=== PATIENT | female | born 1930 | race Caucasian/White ===

== ENCOUNTER 2017-07-05 12:06 | Observation (INO) ==
[2017-07-05] MEDS ORDERED: 0.9 % Sodium Chloride 1,000 ML IVC ONE ×2 (12:44→13:22)
[2017-07-05 13:02] LABS: Basophils % 0.2 %; Eosinophils % 0.1 %; Hematocrit 44.6 % (35.3-44.9); Hemoglobin 14.7 g/dL (11.5-15.4); Immature Granulocytes % 0.6 % (0-4); Lymphocytes # 0.1 K/mcL (0.6-4.6); Lymphocytes % 0.9 %; Mean Corpuscular Hemoglobin 31.8 pg (28.0-33.3); Mean Corpuscular Volume 96.5 fL (83.0-100.0); Mean Platelet Volume 10.1 fL (9.4-12.4); Monocytes # 0.7 K/mcL (0.0-1.3); Monocytes % 5.1 %; Nucleated Red Blood Cells 0.1 /100 WBC (0); Platelet Count 245 K/mcL (140-400); Red Blood Count 4.62 M/mcL (3.82-4.97); Red Cell Distribution Width 13.5 % (11.5-14.5); Segmented Neutrophils % 93.1 %
[2017-07-05 13:11] LABS: Bilirubin,Urine Negative (Negative); Blood,Urine Negative (Negative); Clarity,Urine Clear (Clear); Color,Urine Yellow (Yellow); Glucose,Urine (UA) 100 mg/dL (Normal); Ketones,Urine Negative (Negative); Leukocyte Esterase,Urine Negative (Negative); Nitrite,Urine Negative (Negative); PH,Urine 5.5 pH Units (5.0-8.0); Protein,Urine Trace mg/dL (Neg-Trace); Specific Gravity,Urine 1.022 (1.010-1.025); Urobilinogen,Urine Normal (Normal)
[2017-07-05 13:13] LABS: Bacteria,Urine None Seen per hpf (None-Few); Hyaline Casts,Urine None Seen per lpf (None-Few); RBC,Urine 0-3 per hpf (0-3); Squamous Epithelial Cell,Urine Many per lpf (None-Few); WBC,Urine 0-3 per hpf (0-3)
[2017-07-05] MEDS ORDERED: Ondansetron 4 MG/2 ML VIAL IVP ONE ×2 (13:22→20:44)
[2017-07-05] MEDS ORDERED: Hyoscyamine 0.5 MG/ML MLS IVP ONE (13:22)
[2017-07-05 13:23] LABS: Platelet Estimate Normal (Normal); Smudge Cells Present (Not Present)
--- NOTE | 2017-07-05 13:25 | Emergency Department Note ---
Disposition Clinical Impression: Enteritis, Gall bladder polyp Sepsis Qualifiers: Sepsis type: sepsis due to unspecified organism Qualified Code(s): A41.9 - Sepsis, unspecified organism Disposition: Admitted As Inpatient Condition: Fair Referrals: Jorge Moya MD [Primary Care Provider] - Forms: ED Satisfaction Letter Time of Disposition: 18:37 General Adult HPI - General Chief complaint: ED Nausea/Vomiting/Diarrhea Stated complaint: NVD/weakness Time Seen by Provider: 07/05/17 12:44 Source: patient, family Mode of arrival: ambulatory Limitations: no limitations Nursing Notes Reviewed: Yes Vital Signs Reviewed: Yes - History of Present Illness HPI Narrative: 86-year-old female history of lung cancer in remission, COPD, hypertension presents for evaluation of abdominal pain and nausea and vomiting. Patient history provided by the family bedside. States that patient started experiencing nonbloody green emesis this morning. Patient's also had nonbloody diarrhea. Patient's also been having diffuse abdominal cramping since then. Patient reports a fever at triage. Patient reports chills. Patient reports a number cough. No URI symptoms. No chest pain. No stress breath. Patient is not currently immunocompromised. The patient's last chemotherapy treatment was a couple years ago. Patient denies any urinary symptoms. Patient has not eaten anything today. Patient still has her gallbladder as well as her appendix. Patient denies any recent antibiotic use. Denies any recent contacts. Pain Scale: 5 - Related Data Home Medications Medication Instructions Recorded Confirmed Atorvastatin [Lipitor] 20 mg PO HS 12/19/14 07/05/17 Losartan/HCTZ [Hyzaar 50/12.5] 1 each PO DAILY 12/19/14 07/05/17 PredniSONE 2.5 mg PO TID 03/26/15 07/05/17 Calcium Carbonate/Vitamin D3 1 each PO DAILY 06/30/15 07/05/17 [Calcium 600 + Vit D Tablet] Cholecalciferol (D-3) [Vitamin D] 5,000 unit PO DAILY 06/22/17 07/05/17 dilTIAZem HCl [Diltiazem ER] 240 mg PO DAILY 06/22/17 07/05/17 Previous Rx's Medication Instructions Recorded Omeprazole [PriLOSEC] 20 mg PO DAILY #30 cap 07/01/16 Allergies Allergy/AdvReac Type Severity Reaction Status Date / Time codeine Allergy Hives Verified 07/05/17 12:29 All systems ED: reviewed and negative except as stated. Constitutional: Reports: fever Cardiovascular: Denies: chest pain Respiratory: Reports: cough. Denies: dyspnea Gastrointestinal: Reports: abdominal pain, nausea, vomiting, diarrhea Genitourinary: Denies: dysuria Past Medical History - Past Medical History Source: patient, obtained from family Medical history: Reports: cancer, COPD, hyperlipidemia, hypertension Surgical history: Reports: non-contributory Psychiatric history: Reports: no psych history - Social History Smoking Status: Never smoker Smokeless Tobacco Status: No Alcohol use: Reports: none Drug use: Reports: none Physical Exam - General Limitations: no limitations General appearance: alert, in no apparent distress - Head Head exam: atraumatic, normocephalic, normal inspection - Eye Eye exam: Present: normal appearance, PERRL, EOMI - ENT ENT exam: normal exam, normal oropharynx, mucous membranes moist - Neck Neck exam: Present: normal inspection, full ROM, trachea midline - Chest Chest inspection: Present: normal inspection, symmetric chest wall rise - Respiratory Respiratory exam: Present: normal lung sounds bilaterally. Absent: respiratory distress - Cardiovascular Cardiovascular exam: Present: regular rate, tachycardia. Absent: systolic murmur - Abdominal Exam Abdominal exam: Present: soft, tenderness. Absent: guarding, rebound - Extremities Exam Extremities exam: Present: normal inspection - Back Exam Back exam: Present: normal inspection - Neurological Exam Neurological exam: Present: alert, oriented X3 - Skin Skin exam: Present: warm, dry, intact, normal color Course Course Narrative: Patient seen and examined. Patient does meet SIRS criteria with tachycardia and temperature. Patient's been having abdominal pain nausea vomiting. Patient will get fluid resuscitated, anti-inflammatories, nausea medicine. Patient an extensive evaluation with chest x-ray labs imaging. - Reevaluation(s) Reevaluation #1: Patient seen and examined. Bedside ultrasound shows a distended gallbladder. Anterior gallbladder esteban proximally 3 mm. Given the fact the patient did meet SIRS criteria with likely abdominal pathology. Antibiotics were ordered and administered following blood cultures. Time: 13:56 Reevaluation #2: Patient seen and examined. Patient states she is feeling better. Awaiting CT abdomen and pelvis Time: 14:51 Reevaluation #3: Patient seen and examined. Patient updated on plan of care. Will get U/S Time: 15:20 Additional Reevaluation(s): 1633: Patient's resting comfortably. No acute distress. Vital Signs Temperature 100.3 F H 07/05/17 12:30 Pulse Rate 117 07/05/17 12:30 Respiratory Rate 26 07/05/17 12:30 Blood Pressure 100/60 07/05/17 12:30 O2 Sat by Pulse Oximetry 94 07/05/17 12:30 Temperature 100.3 F H 07/05/17 15:41 Pulse Rate 118 07/05/17 15:41 Respiratory Rate 13 07/05/17 15:41 Blood Pressure 114/55 07/05/17 15:41 O2 Sat by Pulse Oximetry 93 07/05/17 15:41 Oxygen Delivery Oxygen Delivery Nasal Cannula Medical Decision Making - [facility] Narrative Medical decision making narrative: Patient presents with concerns of sepsis. Patient had nausea vomiting diarrhea and weakness. Patient had CT imaging abdomen and pelvis which showed finding consistent with enteritis. Patient was not treated at this point with C. difficile given the duration of symptoms with no prior history of antibiotics. Patient was given Zosyn empirically early on for concerns of intra-abdominal sepsis. She had a ultrasound of the gallbladder which shows a polyp with no signs of acute cholecystitis. Patient had a flu which was negative. Chest x- ray shows no pneumonia. Patient did have a lactic acidosis and was given 2 L of crystalloid as well as started on 125 mL/hr of fluid with repeat lactate that is to be followed by the hospitalist team. She does appear well-perfused. Patient's abdomen has been soft and nonsurgical. Patient will be admitted to the hospital service for further evaluation and monitoring. - Lab Data Lab results reviewed: Yes I reviewed the patient's lab results. Result diagrams: 07/05/17 12:30 07/05/17 12:30 Lab Results 07/05/17 07/05/17 07/05/17 Range/Units 12:30 12:30 13:02 WBC 14.0 H (4.3-11.1) K/mcL RBC 4.62 (3.82-4.97) M/mcL Hgb 14.7 (11.5-15.4) g/dL Hct 44.6 (35.3-44.9) % MCV 96.5 (83.0-100.0) fL MCH 31.8 (28.0-33.3) pg MCHC 33.0 (31.6-35.5) g/dL RDW 13.5 (11.5-14.5) % Plt Count 245 (140-400) K/mcL MPV 10.1 (9.4-12.4) fL Immature Gran % 0.6 (0-4) % Seg Neutrophils % 93.1 % Lymphocytes % 0.9 % Monocytes % 5.1 % Eosinophils % 0.1 % Basophils % 0.2 % Neutrophils # 13.0 H (1.6-8.9) K/mcL Lymphocytes # 0.1 L (0.6-4.6) K/mcL Monocytes # 0.7 (0.0-1.3) K/mcL Eosinophils # 0.0 (0.0-0.6) K/mcL Basophils # 0.0 (0.0-0.2) K/mcL Nucleated RBCs/100 WBC 0.1 H (0) /100 WBC Smudge Cells Present A (Not Present) Platelet Estimate Normal (Normal) PT (9.4-12.1) Seconds INR Sodium 135 L (136-145) mEq/L Potassium 3.7 (3.5-5.1) mEq/L Chloride 100 (98-107) mEq/L Carbon Dioxide 26 (23-29) mEq/L BUN 31 H (8-23) mg/dL Creatinine 1.20 (0.60-1.20) mg/dL Est GFR ( Amer) 52 L (> 60) Est GFR (Non-Af Amer) 43 L (> 60) BUN/Creatinine Ratio 26 (6-26) Glucose 203 H (70-105) mg/dL Calculated Osmolality 292 (280-300) Lactic Acid (0.5-2.2) mmol/L Calcium 10.1 (8.6-10.3) mg/dL Total Bilirubin 0.8 (0.3-1.0) mg/dL AST 25 (13-39) Units/L ALT 23 (7-52) Units/L Alkaline Phosphatase 83 (34-104) Units/L Troponin I (< 0.04) ng/mL Serum Total Protein 7.5 (6.4-8.9) g/dL Albumin 4.3 (3.5-5.7) g/dL Globulin 3.2 (2.4-3.5) g/dL Albumin/Globulin Ratio 1.3 (1.1-2.2) Lipase 14 (11-82) Units/L Urine Color Yellow (Yellow) Urine Clarity Clear (Clear) Urine pH 5.5 (5.0-8.0) pH Units Ur Specific [place]iva 1.022 (1.010-1.025) Urine Protein Trace (Neg-Trace) mg/dL Urine Glucose (UA) 100 H (Normal) mg/dL Urine Ketones Negative (Negative) mg/dL Urine Blood Negative (Negative) Urine Nitrite Negative (Negative) Urine Bilirubin Negative (Negative) Urine Urobilinogen Normal (Normal) mg/dL Ur Leukocyte Esterase Negative (Negative) Urine Microscopic RBC 0-3 (0-3) per hpf Urine Microscopic WBC 0-3 (0-3) per hpf Ur Squamous Epith Cells Many H (None-Few) per lpf Urine Bacteria None Seen (None-Few) per hpf Hyaline Casts None Seen (None-Few) per lpf Ur Culture Indicated? NO (NO) Blood Type Antibody Screen 07/05/17 07/05/17 07/05/17 Range/Units 13:20 13:20 13:48 WBC (4.3-11.1) K/mcL RBC (3.82-4.97) M/mcL Hgb (11.5-15.4) g/dL Hct (35.3-44.9) % MCV (83.0-100.0) fL MCH (28.0-33.3) pg MCHC (31.6-35.5) g/dL RDW (11.5-14.5) % Plt Count (140-400) K/mcL MPV (9.4-12.4) fL Immature Gran % (0-4) % Seg Neutrophils % % Lymphocytes % % Monocytes % % Eosinophils % % Basophils % % Neutrophils # (1.6-8.9) K/mcL Lymphocytes # (0.6-4.6) K/mcL Monocytes # (0.0-1.3) K/mcL Eosinophils # (0.0-0.6) K/mcL Basophils # (0.0-0.2) K/mcL Nucleated RBCs/100 WBC (0) /100 WBC Smudge Cells (Not Present) Platelet Estimate (Normal) PT 11.3 (9.4-12.1) Seconds INR 1.1 Sodium (136-145) mEq/L Potassium (3.5-5.1) mEq/L Chloride (98-107) mEq/L Carbon Dioxide (23-29) mEq/L BUN (8-23) mg/dL Creatinine (0.60-1.20) mg/dL Est GFR ( Amer) (> 60) Est GFR (Non-Af Amer) (> 60) BUN/Creatinine Ratio (6-26) Glucose (70-105) mg/dL Calculated Osmolality (280-300) Lactic Acid (0.5-2.2) mmol/L Calcium (8.6-10.3) mg/dL Total Bilirubin (0.3-1.0) mg/dL AST (13-39) Units/L ALT (7-52) Units/L Alkaline Phosphatase (34-104) Units/L Troponin I < 0.03 (< 0.04) ng/mL Serum Total Protein (6.4-8.9) g/dL Albumin (3.5-5.7) g/dL Globulin (2.4-3.5) g/dL Albumin/Globulin Ratio (1.1-2.2) Lipase (11-82) Units/L Urine Color (Yellow) Urine Clarity (Clear) Urine pH (5.0-8.0) pH Units Ur Specific Riva (1.010-1.025) Urine Protein (Neg-Trace) mg/dL Urine Glucose (UA) (Normal) mg/dL Urine Ketones (Negative) mg/dL Urine Blood (Negative) Urine Nitrite (Negative) Urine Bilirubin (Negative) Urine Urobilinogen (Normal) mg/dL Ur Leukocyte Esterase (Negative) Urine Microscopic RBC (0-3) per hpf Urine Microscopic WBC (0-3) per hpf Ur Squamous Epith Cells (None-Few) per lpf Urine Bacteria (None-Few) per hpf Hyaline Casts (None-Few) per lpf Ur Culture Indicated? (NO) Blood Type A NEGATIVE Antibody Screen NEGATIVE 07/05/17 07/05/17 Range/Units 13:48 15:22 WBC (4.3-11.1) K/mcL RBC (3.82-4.97) M/mcL Hgb (11.5-15.4) g/dL Hct (35.3-44.9) % MCV (83.0-100.0) fL MCH (28.0-33.3) pg MCHC (31.6-35.5) g/dL RDW (11.5-14.5) % Plt Count (140-400) K/mcL MPV (9.4-12.4) fL Immature Gran % (0-4) % Seg Neutrophils % % Lymphocytes % % Monocytes % % Eosinophils % % Basophils % % Neutrophils # (1.6-8.9) K/mcL Lymphocytes # (0.6-4.6) K/mcL Monocytes # (0.0-1.3) K/mcL Eosinophils # (0.0-0.6) K/mcL Basophils # (0.0-0.2) K/mcL Nucleated RBCs/100 WBC (0) /100 WBC Smudge Cells (Not Present) Platelet Estimate (Normal) PT (9.4-12.1) Seconds INR Sodium (136-145) mEq/L Potassium (3.5-5.1) mEq/L Chloride (98-107) mEq/L Carbon Dioxide (23-29) mEq/L BUN (8-23) mg/dL Creatinine (0.60-1.20) mg/dL Est GFR ( Amer) (> 60) Est GFR (Non-Af Amer) (> 60) BUN/Creatinine Ratio (6-26) Glucose (70-105) mg/dL Calculated Osmolality (280-300) Lactic Acid 2.7 H 2.8 H (0.5-2.2) mmol/L Calcium (8.6-10.3) mg/dL Total Bilirubin (0.3-1.0) mg/dL AST (13-39) Units/L ALT (7-52) Units/L Alkaline Phosphatase (34-104) Units/L Troponin I (< 0.04) ng/mL Serum Total Protein (6.4-8.9) g/dL Albumin (3.5-5.7) g/dL Globulin (2.4-3.5) g/dL Albumin/Globulin Ratio (1.1-2.2) Lipase (11-82) Units/L Urine Color (Yellow) Urine Clarity (Clear) Urine pH (5.0-8.0) pH Units Ur Specific Riva (1.010-1.025) Urine Protein (Neg-Trace) mg/dL Urine Glucose (UA) (Normal) mg/dL Urine Ketones (Negative) mg/dL Urine Blood (Negative) Urine Nitrite (Negative) Urine Bilirubin (Negative) Urine Urobilinogen (Normal) mg/dL Ur Leukocyte Esterase (Negative) Urine Microscopic RBC (0-3) per hpf Urine Microscopic WBC (0-3) per hpf Ur Squamous Epith Cells (None-Few) per lpf Urine Bacteria (None-Few) per hpf Hyaline Casts (None-Few) per lpf Ur Culture Indicated? (NO) Blood Type Antibody Screen - Radiology Data Radiology results reviewed: Yes I reviewed the patient's radiology results. Abdomen/Pelvis CT 07/05/17 12:45 IMPRESSION: Fluid-filled colon consistent with diarrheal illness, which could be secondary to enteritis. Cortical foci of hypodensity in the right kidney are favored to represent scarring, though pyelonephritis could have a similar appearance. Correlate with urinalysis. 1.1 cm lesion in the gallbladder which does not appear to be dependent. Consider nonemergent follow-up ultrasound to determine if this represents cholelithiasis or polyp/ soft tissue lesion. Mild hepatic steatosis. D/ / Nolan Dang MD / Nolan Dang MD Interpreting Provider: Nolan Dang MD Chest X-Ray 07/05/17 13:21 IMPRESSION: No acute cardiopulmonary process. D/ / Moises Barnett MD / Moises Barnett MD Interpreting Provider: Moises Barnett MD Gallbladder Ultrasound 07/05/17 14:56 IMPRESSION: 1. A nonmobile rounded lesion is present along the gallbladder wall, measuring up to 1.3 cm in greatest dimension. This could represent a gallstone, and appears at least partially calcified on prior CT imaging. However, a gallbladder polyp cannot be entirely excluded. Surgical consultation is recommended on a nonemergent basis. Follow-up ultrasound in 6-12 months could be considered. 2. No evidence of acute cholecystitis. 3. Possible mild hepatic steatosis. D/ / 07/05/2017 17:18:19 Moises Barnett MD / rudy Interpreting Provider: Moises Barnett MD - EKG Data EKG #1 EKG attestation: Yes I reviewed and interpreted this EKG. EKG shows normal: sinus rhythm Rate: tachycardia Rhythm: NSR [place]/QRS: normal Heart block present: 1st Degree Q waves: II, v1, v2 Interpretation: no acute changes, nonspecific ST-T wave changes S.B.A.R. - S.B.A.RKaitlin Situation: Demographics Background: Presenting Complaint Assessment: Vital Signs, Course and respsone to treatment, Patient/Family Expectation Recommendation: Barrier(s) to disposition, Recommendation based on pending studies, treatments, or consults S.B.A.RKaitlin Report Given to: Dr. Mary De La Cruz Repor Time: 18:35 Attestation Statement - Attestation Attestation: I examined this patient and my medical decision-making was reviewed with the Resident Physician. I agree with the documented findings, disposition and treatment plan as described except to the extent set forth below. Findings consistent with sepsis from diarrheal illness. Will start broad-spectrum antibiotic coverage. CT scan shows evidence of underlying diarrheal illness. Patient will be admitted for further evaluation and pending results of cultures. I spent greater than 35 minutes of critical care time resuscitating this acutely ill patient suffering from sepsis. This was excluding billable procedures. Sepsis Reassessment Note - Evaluation Current Stage of Sepsis: sepsis - Focused Exam Date of Encounter: 07/05/17 Time of Encounter: 15:11 Vital Signs: Vital Signs Temp Pulse Resp BP Pulse Ox 07/05/17 15:41 100.3 F H 118 13 114/55 93 07/05/17 12:30 100.3 F H 117 26 100/60 94 Respiratory Exam: Present: CTA bilaterally Cardiovascular Exam: Present: RRR Capillary Refill: < 2 seconds Peripheral Pulse Strength: 2+ slightly diminished Peripheral Pulse Location: Radial Skin Exam: normal turgor - Reassessment Comments Comments: Patient's resting comfortably. Patient's in no acute distress.
[2017-07-05 13:26] LABS: Albumin 4.3 g/dL (3.5-5.7); Albumin/Globulin Ratio 1.3 (1.1-2.2); Bilirubin,Total 0.8 mg/dL (0.3-1.0); Calcium 10.1 mg/dL (8.6-10.3); Globulin 3.2 g/dL (2.4-3.5); Potassium 3.7 mEq/L (3.5-5.1); Total Protein 7.5 g/dL (6.4-8.9)
[2017-07-05 13:41] LABS: INR 1.1; Prothrombin Time 11.3 Seconds (9.4-12.1)
[2017-07-05] MEDS ORDERED: Piperacillin/Tazobactam 3.375 GM in 0.9 % Sodium Chloride Mini Bag 100 ML IVPB ONE (13:55)
[2017-07-05] MEDS ORDERED: Piperacillin/Tazobactam 3.375 GM in Water for inj. (sterile) 20 ML 20 ML IVP ONE (15:00)
--- NOTE | 2017-07-05 16:53 | Electrocardiograph Report ---
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
[2017-07-05] MEDS ORDERED: 0.9 % Sodium Chloride 1,000 ML IVC SCH (18:30)
[2017-07-06] MEDS ORDERED: Naloxone 0.4 MG/ML INJ IVP PRN (00:17)
[2017-07-06] MEDS ORDERED: Ondansetron 4 MG/2 ML VIAL IVP PRN (00:21)
[2017-07-06] MEDS ORDERED: 0.9 % Sodium Chloride 1,000 ML ONE (01:03)
--- NOTE | 2017-07-06 01:34 | Internal Med History&Physical ---
Date of Encounter: 07/05/17 Time of Encounter: 23:00 Assessment and Plan (1) Acute gastroenteritis Current visit: Yes Status: Acute Patient has acute onset nausea, vomiting, diarrhea. CT abdomen shows enteritis. Consider acute gastroenteritis. - We will place patient on clear liquid diet - IV fluid for dehydration - Empirically start zosyn as patient has high leukocytosis - Check stool sample to rule out C. difficile (2) Chronic steroid use Current visit: Yes Status: Acute Patient has a chronic steroid use. Will place patient on stress dose hydrocortisone at this point to prevent adrenal crisis (3) Gall bladder polyp Current visit: Yes Status: Acute Patient said she has gallbladder polyp for a long time. Continue follow-up as outpatient (4) Sepsis Current visit: Yes Status: Acute Patient to meet sepsis criteria with leukocytosis and fever and tachycardia. Resource of infection probably due to gastroenteritis. - IV fluid resuscitation started the from ER - Lactate level initially 2.8, get down to 1.3 after resuscitation - On Zosyn - Continue closely monitor patient Qualifiers: Sepsis type: sepsis due to unspecified organism Qualified Code(s): A41.9 - Sepsis, unspecified organism (5) Lung cancer Current visit: No Status: Chronic Continue follow-up with oncology as outpatient Qualifiers: Laterality: right Lung location: upper lobe of lung Qualified Code(s): C34.11 - Malignant neoplasm of upper lobe, right bronchus or lung Internal Medicine - H&P: HPI Chief complaint: Nausea, vomiting, and diarrhea. Admitted From: Home Plans for Post Hospital Care: Home History of present illness: Ms. 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 Patient has 10-12 times of vomiting since yesterday, the vomiting are greenish or yellowish fluid, no blood in it. Patient also has diarrhea, which is watery, no blood in it. Patient complains of mild abdominal pain. She has low-grade fever. Patient denies runny nose. In emergency room, CT abdomen suggest enteritis. Patient was admitted for further management. Past Med Surg Social Fam HX - Past Medical History Medical history: cancer, COPD, hyperlipidemia, hypertension Psychiatric history: no psych history - Past Surgical History Surgical History: non-contributory - Social History Smoking Status: Never smoker Smokeless Tobacco Status: No Alcohol use: none Drug use: none - Family History Mother Hx Family Cardiac Disorders: Yes (cardiac arrest) Hx Family Cancer: Yes Father Hx Family Endocrine Disorder: Yes (DM) Hx Family Psychosocial Disorders: Yes (dementia) Internal Medicine - H&P: Meds Atorvastatin [Lipitor] 20 mg PO HS 12/19/14 [History] Losartan/HCTZ [Hyzaar 50/12.5] 1 each PO DAILY 12/19/14 [History] PredniSONE 2.5 mg PO TID 03/26/15 [History] Calcium Carbonate/Vitamin D3 [Calcium 600 + Vit D Tablet] 1 each PO DAILY [History] Omeprazole [PriLOSEC] 20 mg PO DAILY #30 cap 07/01/16 [Rx] Cholecalciferol (D-3) [Vitamin D] 5,000 unit PO DAILY 06/22/17 [History] dilTIAZem HCl [Diltiazem ER] 240 mg PO DAILY 06/22/17 [History] 3 Allergy/AdvReac Type Severity Reaction Status Date / Time codeine Allergy Hives Verified 07/05/17 12:29 All Systems PM: A 10-system review of systems was performed and is negative for pertinent findings except as documented above in the HPI. - Constitutional Vitals: Temp Pulse Resp BP Pulse Ox 100.3 F H 81 18 112/61 90 07/06/17 00:21 07/06/17 00:21 07/06/17 00:21 07/06/17 00:21 07/06/17 00:21 General appearance: Present: A&O X 3, no acute distress, answers questions appropriately - Head Head exam: Present: atraumatic, normocephalic - Eye Eye exam: Present: PERRL, conjuntiva pink, sclera anicteric Pupils: Present: PERRL - Neck Neck exam general surgery: Present: supple, trachea midline. Absent: lymphadenopathy - Respiratory Respiratory exam: Present: CTAB. Absent: accessory muscle use, rales, rhonchi, wheezes - Cardiovascular Cardiovascular exam: Present: RRR, +S1, +S2. Absent: diastolic murmur, gallop, rubs, systolic murmur - GI/Abdominal GI/Abdominal exam: Present: normal bowel sounds, soft, tenderness (Mild tenderness on lower abdominal area, without guarding or rebound), no peritoneal signs. Absent: distended - Extremities Exam Extremities exam: Present: warm, radial pulses palpable and symmetrical. Absent : calf tenderness, cyanotic, pedal edema - Neurological Exam Neurological exam: Present: CN II-XII intact, oriented X3, no focal deficits. Absent: pronater drift, facial droop, speech deficit - Skin Skin exam: Present: dry, intact Internal Med - H&P Results - Labs CBC & Chem 7: 07/05/17 12:30 07/05/17 12:30
[2017-07-06] MEDS: Hydrocortisone Sodium Succ 100 MG/2 ML VIAL IVP SCH ×2 (02:00→09:00)
[2017-07-06] MEDS: Acetaminophen 325 MG TABLET PO PRN (03:34)
[2017-07-06 06:01] LABS: Basophils % 0.1 %; Hematocrit 34.8 % (35.3-44.9); Immature Granulocytes % 0.6 % (0-4); Lymphocytes # 0.2 K/mcL (0.6-4.6); Lymphocytes % 1.8 %; Mean Corpuscular HGB Conc 32.5 g/dL (31.6-35.5); Mean Corpuscular Hemoglobin 31.9 pg (28.0-33.3); Mean Corpuscular Volume 98.3 fL (83.0-100.0); Mean Platelet Volume 10.3 fL (9.4-12.4); Monocytes # 0.2 K/mcL (0.0-1.3); Monocytes % 2.2 %; Neutrophils # 7.7 K/mcL (1.6-8.9); Platelet Count 188 K/mcL (140-400); Red Blood Count 3.54 M/mcL (3.82-4.97); Red Cell Distribution Width 13.8 % (11.5-14.5); Segmented Neutrophils % 95.3 %
[2017-07-06 06:07] LABS: Hemoglobin 11.3 g/dL (11.5-15.4)
[2017-07-06] MEDS: *HR* Heparin 5,000 UNIT/ML VIAL SQ SCH ×2 (06:11→17:14)
[2017-07-06 06:17] LABS: Calcium 8.2 mg/dL (8.6-10.3); Magnesium 1.5 mg/dL (1.6-2.6); Potassium 3.6 mEq/L (3.5-5.1)
[2017-07-06] MEDS: 0.9 % Sodium Chloride 1,000 ML IVC SCH ×3 (07:29→22:46)
[2017-07-06] MEDS ORDERED: (Calcium Carbonate/Vitamin D3 [Calcium 600 + Vit D TaB) PO SCH (09:00)
[2017-07-06] MEDS: Diltiazem CD (24hr) 240 MG CAPSULE PO SCH (09:00)
[2017-07-06] MEDS ORDERED: Losartan/HCTZ 50-12.5 TABLET PO SCH (09:00)
[2017-07-06] MEDS: Cholecalciferol (D-3) 1,000 UNIT TABLET PO SCH (09:00)
[2017-07-06] MEDS: Piperacillin/Tazobactam 3.375 GM in 0.9 % Sodium Chloride Mini Bag 100 ML IVPB SCH ×2 (09:01→15:58)
--- NOTE | 2017-07-06 18:05 | Internal Med Progress Note ---
Date of Encounter: 07/06/17 Time of Encounter: 10:45 - Assessment and plan (1) Sepsis Current Visit: Yes Status: Acute Assessment and plan: Patient to meet sepsis criteria with leukocytosis, fever, tachycardia and source of infection probably due to gastroenteritis. Lactate level initially 2.8, get down to 1.3 after resuscitation continue empirical antibiotic Qualifiers: Sepsis type: sepsis due to unspecified organism Qualified Code(s): A41.9 - Sepsis, unspecified organism (2) Acute gastroenteritis Current Visit: Yes Status: Acute Assessment and plan: Mostly viral however with her immunocompromised state, concerning for C. Diff inf ordered C. Diff Switched abx to Flagyl PO Cont symptomatic and supportive care IV hydration advanced diet as tolerates (3) Chronic steroid use Current Visit: Yes Status: Acute Assessment and plan: Does not look at the patient is in any crisis continue home dose of oral steroids discontinue stress dose steroids now (4) Gall bladder polyp Current Visit: Yes Status: Acute Assessment and plan: Patient does aware of it suggested to follow up with the surgery as outpatient (5) Lung cancer Current Visit: No Status: Chronic Assessment and plan: Continue follow-up with oncology as outpatient Qualifiers: Laterality: right Lung location: upper lobe of lung Qualified Code(s): C34.11 - Malignant neoplasm of upper lobe, right bronchus or lung - Subjective Interval history: Ms. 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 Patient has 10-12 times of vomiting since yesterday, the vomiting are greenish or yellowish fluid, no blood in it. Patient also has diarrhea, which is watery, no blood in it. Patient complains of mild abdominal pain. She has low-grade fever. In emergency room, CT abdomen suggest enteritis. Patient was admitted for further management. Pt states she is feeling better now. Denied any CP / SOB. No abd pain. Tolerating clear liquids well. No more N/V. No BM since morning - Constitutional Vitals: Temp Pulse Resp BP Pulse Ox 98.3 F 67 17 94/54 97 07/06/17 16:47 07/06/17 16:47 07/06/17 16:47 07/06/17 16:47 07/06/17 16:47 General appearance: Present: A&O X 3, no acute distress, answers questions appropriately - Head Head exam: Present: atraumatic, normal inspection - Neck Neck exam general surgery: Present: supple - Respiratory Respiratory exam: Present: decreased breath sounds. Absent: rales, respiratory distress, rhonchi, wheezes - Cardiovascular Cardiovascular exam: Present: RRR, +S1, +S2. Absent: tachycardia - GI/Abdominal GI/Abdominal exam: Present: normal bowel sounds, soft. Absent: rebound, rigid, tenderness - Extremities Exam Extremities exam: Absent: calf tenderness, pedal edema, tenderness - Back Exam Back exam: Absent: CVA tenderness (L), CVA tenderness (R) - Neurological Exam Neurological exam: Present: alert, oriented X3 - Psychiatric Psychiatric exam: Present: normal affect, normal mood Internal Medicine: Result - Labs CBC & Chem 7: 07/06/17 05:20 07/06/17 05:20 Labs: Short CBC 07/06/17 Range/Units 05:20 WBC 8.1 (4.3-11.1) K/mcL Hgb 11.3 L D (11.5-15.4) g/dL Hct 34.8 L (35.3-44.9) % Plt Count 188 (140-400) K/mcL Neutrophils # 7.7 (1.6-8.9) K/mcL BMP 07/06/17 05:20 Sodium 135 L Potassium 3.6 Chloride 108 H Carbon Dioxide 20 L BUN 27 H Creatinine 1.30 H Glucose 129 H Calcium 8.2 L - ABG Interpretation ABG results: PT/INR, D-dimer PT 11.3 Seconds (9.4-12.1) 07/05/17 13:20 Consult Discharge Plan - Plan Referrals: Jorge Moya MD [Primary Care Provider] -
[2017-07-06] MEDS: MetroNIDAZOLE 500 MG/100 ML 500 MG/100 ML BAG IVPB SCH (22:46)
[2017-07-07] MEDS: Acetaminophen 325 MG TABLET PO PRN (03:55)
[2017-07-07] MEDS: *HR* Heparin 5,000 UNIT/ML VIAL SQ SCH ×2 (06:01→18:06)
[2017-07-07 06:07] LABS: Basophils % 0.2 %; Eosinophils # 0.1 K/mcL (0.0-0.6); Eosinophils % 0.9 %; Hematocrit 31.1 % (35.3-44.9); Hemoglobin 10.3 g/dL (11.5-15.4); Immature Granulocytes % 0.6 % (0-4); Lymphocytes # 0.7 K/mcL (0.6-4.6); Lymphocytes % 10.7 %; Mean Corpuscular HGB Conc 33.1 g/dL (31.6-35.5); Mean Corpuscular Hemoglobin 31.8 pg (28.0-33.3); Mean Platelet Volume 10.4 fL (9.4-12.4); Monocytes # 0.7 K/mcL (0.0-1.3); Monocytes % 11.2 %; Neutrophils # 4.8 K/mcL (1.6-8.9); Platelet Count 165 K/mcL (140-400); Red Blood Count 3.24 M/mcL (3.82-4.97); Red Cell Distribution Width 13.4 % (11.5-14.5); Segmented Neutrophils % 76.4 %
[2017-07-07] MEDS: MetroNIDAZOLE 500 MG/100 ML 500 MG/100 ML BAG IVPB SCH (08:14)
[2017-07-07] MEDS: Diltiazem CD (24hr) 240 MG CAPSULE PO SCH (08:14)
[2017-07-07] MEDS: Cholecalciferol (D-3) 1,000 UNIT TABLET PO SCH (08:15)
[2017-07-07] MEDS: predniSONE 5 MG TABLET PO SCH ×3 (08:15→20:04)
[2017-07-07 09:35] LABS: BUN/Creatinine Ratio 18 (6-26); Blood Urea Nitrogen 19 mg/dL (8-23); Calcium 8.1 mg/dL (8.6-10.3); Carbon Dioxide 22 mEq/L (23-29); Chloride 110 mEq/L (98-107); Glucose 107 mg/dL (70-105); Osmolality,Calculated 289 (280-300); Potassium 3.4 mEq/L (3.5-5.1); Sodium 138 mEq/L (136-145); eGFR For African Americans > 60 (> 60); eGFR For Non-African Americans 50 (> 60)
[2017-07-07] MEDS ORDERED: Potassium Chloride Elixir 20 MEQ/15 ML UDC PO ONE (12:44)
[2017-07-07] MEDS: metroNIDAZOLE 500 MG TABLET PO SCH ×2 (14:39→20:04)
--- NOTE | 2017-07-07 16:14 | Internal Med Progress Note ---
Date of Encounter: 07/07/17 Time of Encounter: 10:00 - Assessment and plan (1) Sepsis Current Visit: Yes Status: Acute Assessment and plan: Patient to meet sepsis criteria with leukocytosis, fever, tachycardia and source of infection probably due to gastroenteritis. Lactate level initially 2.8, get down to 1.3 after resuscitation continue empirical antibiotic-- Flagyl Qualifiers: Sepsis type: sepsis due to unspecified organism Qualified Code(s): A41.9 - Sepsis, unspecified organism (2) Acute gastroenteritis Current Visit: Yes Status: Acute Assessment and plan: Mostly viral however with her immunocompromised state, concerning for C. Diff inf C. Diff test came back as negative Switched abx to Flagyl PO Cont symptomatic and supportive care d/c IVF advanced diet as tolerates (3) Chronic steroid use Current Visit: Yes Status: Acute Assessment and plan: Resumed home dose of Prednisone Does not look at the patient is in any crisis (4) Gall bladder polyp Current Visit: Yes Status: Acute Assessment and plan: Patient does aware of it suggested to follow up with the surgery as outpatient No signs of cholecystitis (5) Lung cancer Current Visit: No Status: Chronic Assessment and plan: Continue follow-up with oncology as outpatient Qualifiers: Laterality: right Lung location: upper lobe of lung Qualified Code(s): C34.11 - Malignant neoplasm of upper lobe, right bronchus or lung - Subjective Interval history: Ms. 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 Patient has 10-12 times of vomiting since yesterday, the vomiting are greenish or yellowish fluid, no blood in it. Patient also has diarrhea, which is watery, no blood in it. Patient complains of mild abdominal pain. She has low-grade fever. In emergency room, CT abdomen suggest enteritis. Patient was admitted for further management. Pt states she is feeling better now. Denied any CP / SOB. No abd pain. Tolerating clear liquids well. No more N/V. Still has watery diarrhea. No BRBPR - Constitutional Vitals: Temp Pulse Resp BP Pulse Ox 98.4 F 76 20 113/63 94 07/07/17 16:10 07/07/17 16:10 07/07/17 16:10 07/07/17 16:10 07/07/17 16:10 General appearance: Present: A&O X 3, no acute distress, answers questions appropriately - Head Head exam: Present: atraumatic, normal inspection - Neck Neck exam general surgery: Present: supple - Respiratory Respiratory exam: Present: decreased breath sounds. Absent: rales, respiratory distress, rhonchi, wheezes - Cardiovascular Cardiovascular exam: Present: RRR, +S1, +S2. Absent: tachycardia - GI/Abdominal GI/Abdominal exam: Present: normal bowel sounds, soft. Absent: rebound, rigid, tenderness - Extremities Exam Extremities exam: Absent: cyanotic, pedal edema, tenderness - Back Exam Back exam: Absent: CVA tenderness (L), CVA tenderness (R) - Neurological Exam Neurological exam: Present: alert, oriented X3 - Psychiatric Psychiatric exam: Present: normal affect, normal mood Internal Medicine: Result - Labs CBC & Chem 7: 07/07/17 05:30 07/07/17 05:30 Labs: Short CBC 07/07/17 Range/Units 05:30 WBC 6.3 (4.3-11.1) K/mcL Hgb 10.3 L (11.5-15.4) g/dL Hct 31.1 L (35.3-44.9) % Plt Count 165 (140-400) K/mcL Neutrophils # 4.8 (1.6-8.9) K/mcL BMP 07/07/17 05:30 Sodium 138 Potassium 3.4 L Chloride 110 H Carbon Dioxide 22 L BUN 19 Creatinine 1.05 Glucose 107 H Calcium 8.1 L - ABG Interpretation ABG results: PT/INR, D-dimer PT 11.3 Seconds (9.4-12.1) 07/05/17 13:20 Consult Discharge Plan - Plan Referrals: Jorge Moya MD [Primary Care Provider] -
[2017-07-08] MEDS: *HR* Heparin 5,000 UNIT/ML VIAL SQ SCH (05:09)
[2017-07-08 05:11] LABS: Basophils % 0.2 %; Eosinophils % 0.2 %; Hematocrit 33.4 % (35.3-44.9); Hemoglobin 11.3 g/dL (11.5-15.4); Immature Granulocytes % 0.3 % (0-4); Lymphocytes # 0.7 K/mcL (0.6-4.6); Lymphocytes % 7.4 %; Mean Corpuscular HGB Conc 33.8 g/dL (31.6-35.5); Mean Corpuscular Hemoglobin 31.4 pg (28.0-33.3); Mean Corpuscular Volume 92.8 fL (83.0-100.0); Mean Platelet Volume 10.3 fL (9.4-12.4); Monocytes # 0.8 K/mcL (0.0-1.3); Monocytes % 8.2 %; Platelet Count 179 K/mcL (140-400); Red Cell Distribution Width 13.4 % (11.5-14.5); Segmented Neutrophils % 83.7 %
[2017-07-08 05:25] LABS: Neutrophils # 8.4 K/mcL (1.6-8.9)
--- NOTE | 2017-07-08 08:31 | Discharge Summary ---
- NOTES TO OUTPATIENT PROVIDER Notes to Outpatient Provider: Avoid dairy products for few more days. 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 Date of Encounter: 07/08/17 Time of Encounter: 08:28 - Discharge Diagnosis (1) Sepsis Priority: Primary Status: Acute Qualifiers: Sepsis type: sepsis due to unspecified organism Qualified Code(s): A41.9 - Sepsis, unspecified organism (2) Acute gastroenteritis Priority: Primary Status: Acute (3) Chronic steroid use Priority: Secondary Status: Acute (4) Gall bladder polyp Priority: Secondary Status: Acute (5) Lung cancer Priority: Secondary Status: Chronic Qualifiers: Laterality: right Lung location: upper lobe of lung Qualified Code(s): C34.11 - Malignant neoplasm of upper lobe, right bronchus or lung Hospital course: Ms. 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 Patient has 10-12 times of vomiting since yesterday, the vomiting are greenish or yellowish fluid, no blood in it. Patient also has diarrhea, which is watery, no blood in it. Patient complains of mild abdominal pain. She has low-grade fever. In emergency room, CT abdomen suggest enteritis. Patient was admitted for further management. She was started on symptomatic and supportive care with IV hydration and empirical abx. Since pt is immunocompromised we were concerned about C. Diff infection, however Stool C. Diff came back as negative. Her symptoms improved and patient is tolerating oral intake well. So will discharge her home today in a stable condition - Time Spent with Patient Total time spent providing and/or coordinating discharge services: - Discharge Medications Prescriptions: metroNIDAZOLE [Flagyl] 500 mg PO TID #12 tablet Saccharomyces Boulardii [Florastor] 250 mg PO BID #20 capsule Home Medications: Atorvastatin [Lipitor] 20 mg PO HS 12/19/14 [History] Losartan/HCTZ [Hyzaar 50/12.5] 1 each PO DAILY 12/19/14 [History] PredniSONE 2.5 mg PO TID 03/26/15 [History] Calcium Carbonate/Vitamin D3 [Calcium 600 + Vit D Tablet] 1 each PO DAILY [History] Omeprazole [PriLOSEC] 20 mg PO DAILY #30 cap 07/01/16 [Rx] Cholecalciferol (D-3) [Vitamin D] 5,000 unit PO DAILY 06/22/17 [History] dilTIAZem HCl [Diltiazem ER] 240 mg PO DAILY 06/22/17 [History] Saccharomyces Boulardii [Florastor] 250 mg PO BID #20 capsule 07/08/17 [Rx] metroNIDAZOLE [Flagyl] 500 mg PO TID #12 tablet 07/08/17 [Rx] Allergies/Adverse Reactions: 3 Allergy/AdvReac Type Severity Reaction Status Date / Time codeine Allergy Hives Verified 07/05/17 12:29 Date of admission: 07/06/17 00:17 Primary care physician: Jorge Moya MD - Constitutional Vitals: Temp Pulse Resp BP Pulse Ox 98.8 F 80 16 148/72 97 07/08/17 06:40 07/08/17 06:40 07/08/17 06:40 07/08/17 06:40 07/08/17 06:40 General appearance: Present: A&O X 3, no acute distress, answers questions appropriately - Head Head exam: Present: atraumatic, normal inspection - Neck Neck exam general surgery: Present: supple - Respiratory Respiratory exam: Present: decreased breath sounds. Absent: rales, respiratory distress, rhonchi, wheezes - Cardiovascular Cardiovascular exam: Present: RRR, +S1, +S2. Absent: tachycardia - GI/Abdominal GI/Abdominal exam: Present: normal bowel sounds, soft. Absent: rebound, rigid, tenderness - Extremities Exam Extremities exam: Absent: calf tenderness, pedal edema, tenderness - Back Exam Back exam: Absent: CVA tenderness (L), CVA tenderness (R) - Neurological Exam Neurological exam: Present: alert, oriented X3 - Psychiatric Psychiatric exam: Present: normal affect, normal mood - Skin Skin exam: Absent: rash - Patient Status Disposition: Home, Self-Care Condition: Good Overall status at discharge: patient is back to baseline - Discharge Instructions Follow Up With: Jorge Moya MD [Primary Care Provider] - William Morillo MD [Partnered Physician] - - Diet and Activity Activity: increase activity as tolerated Diet: low salt diet
[2017-07-08] MEDS: metroNIDAZOLE 500 MG TABLET PO SCH (08:36)
[2017-07-08] MEDS: predniSONE 5 MG TABLET PO SCH (08:36)
[2017-07-08] MEDS: Cholecalciferol (D-3) 1,000 UNIT TABLET PO SCH (08:36)
[2017-07-08] MEDS: Diltiazem CD (24hr) 240 MG CAPSULE PO SCH (08:37)
[2017-07-08 09:51] VITALS: BP 132/67
== END 2017-07-08 11:03 | disposition home or self-care (01) | DRG 872 ==
LOC: 2ANU 12:06 → EMEROO 12:06 → 2ANU 21:35
PROVIDERS: ADMIT Internal Medicine Cardiovascular Disease; ATTEND Family Medicine

== ENCOUNTER 2018-09-13 13:00 | Observation (INO) ==
--- NOTE | 2018-09-13 13:47 | Emergency Department Note ---
Disposition Clinical Impression: Congestive heart failure Qualifiers: Heart failure type: unspecified Heart failure chronicity: chronic Qualified Code(s): I50.9 - Heart failure, unspecified Failure to thrive Qualifiers: Failure to thrive age range: in adult Qualified Code(s): R62.7 - Adult failure to thrive Disposition: Admitted As Inpatient Condition: Fair Time of Disposition: 16:34 General Adult HPI - General Chief complaint: ED Weakness Stated complaint: weak, N/V Time Seen by Provider: 09/13/18 13:21 Source: patient, family Mode of arrival: ambulatory Limitations: no limitations Nursing Notes Reviewed: Yes Vital Signs Reviewed: Yes - History of Present Illness HPI Narrative: 88-year-old female past medical history of lung cancer treated with chemotherapy/radiation by Dr. Warren, recently treated with Bactrim for fungal/ bacterial pneumonia. Complaining of 3 weeks of gradually progressive and worsening weakness, fatigue, headaches, lightheadedness/dizziness, neck and back pain, chest pain associated with cough and shortness of breath, shortness of breath, abdominal pain/nausea/vomiting, numbness and paresthesias. Patient denies hematuria/medic easy, hemoptysis or hematemesis. Onset (ago): week(s) Pain Severity: severe Pain Scale: 7 Associated symptoms: Reports: chest pain, cough, fever/chills, headaches, loss of appetite, malaise, nausea/vomiting, shortness of breath, weakness - Related Data Home Medications Medication Instructions Recorded Confirmed Atorvastatin [Lipitor] 20 mg PO HS 12/19/14 06/07/18 PredniSONE 2.5 mg PO TID 03/26/15 12/05/17 Cholecalciferol (D-3) [Vitamin D] 5,000 unit PO DAILY 06/22/17 06/07/18 dilTIAZem HCl [Diltiazem ER] 240 mg PO DAILY 06/22/17 06/07/18 Albuterol Sulfate [Proair Hfa] 2 puff IH Q4H PRN 07/20/17 06/07/18 Losartan Potassium [Cozaar] 100 mg PO DAILY 07/20/17 06/07/18 Mv-Mn/FA/Vit K/Lycop/Lut/Coq10 1 tab PO DAILY 07/20/17 06/07/18 [Daily Multivitamin Capsule] Lactobacillus Combination No.8 2 cap PO DAILY 12/05/17 06/07/18 [Adult Probiotic] metFORMIN [Glucophage] 500 mg PO DAILY 06/07/18 06/07/18 Previous Rx's Medication Instructions Recorded Omeprazole [PriLOSEC] 20 mg PO DAILY #30 cap 07/01/16 Saccharomyces Boulardii [Florastor] 250 mg PO BID #20 capsule 07/08/17 Allergies Allergy/AdvReac Type Severity Reaction Status Date / Time chlorthalidone Allergy See Verified 09/13/18 13:09 Comments codeine Allergy Hives Verified 09/13/18 13:09 metoprolol Allergy See Verified 09/13/18 13:09 Comments Review of Systems: Constitutional: Admits fever, chills Cardiovascular: Admits chest pain related to cough Respiratory: Admits to cough productive of yellow/clear sputum and dyspnea Gastrointestinal: Admits abdominal pain, nausea, vomiting, denies: diarrhea, constipation, hematemesis, melena, hematochezia Genitourinary: Denies: hematuria Musculoskeletal: Admits back pain, neck pain Integumentary: Denies: rash Neurological: Admits headache, weakness, numbness, paresthesias Endocrine: Admits fatigue All systems ED: reviewed and negative except as stated. Review of Systems: As Per HPI Past Medical History - Past Medical History Attestation: Yes The following information was validated with the patient. Source: patient, obtained from family Medical history: Reports: arthritis, cancer, COPD, hyperlipidemia, hypertension Surgical history: Reports: breast surgery Psychiatric history: Reports: no psych history - Social History Smoking Status: Never smoker Smokeless Tobacco Status: No Alcohol use: Reports: none Drug use: Reports: none Physical Exam Constitutional: No acute distress, [id number], engaged to conversation, speech is fluid, answers questions appropriately Neuro: GCS 15, no overt focal neurological deficits Head: Atraumatic, normocephalic Eyes: Pupils equal, round and reactive to light, no scleral icterus, no conjunctival injection Neck: Trachea midline without deviation. Anterior neck is supple without swelling. *Chest: Symmetric chest wall rise *Heart: Cardiac rhythm and rate are regular with S1 and S2 , no S3 or S4 appreciated, no murmurs, gallops, rubs, or clicks. *Lungs: Diminished lung sounds in the left base, crackles in the right base. Otherwise Lungs are clear to auscultation bilaterally, without accessory muscle use or prolonged expiratory phase. No wheezes, rhonchi or stridor appreciated. Abdomen: Abdomen is flat, soft to palpation, normal bowel sounds. No abdominal bruit auscultated. Non-distended, non-rigid, no organomegaly, no ascites appreciated. No pulsatile mass, no tenderness or guarding to palpation in all four quadrants, no rebound Extremities: Normal capillary refill without evidence of pedal edema, joint swelling or erythema. Pulses/motor/sensory intact in all 4 extremities. Psychiatric exam: Patient displays a normal affect and mood for the environment. No overt signs of hallucination. Integumentary: warm, dry, intact, normal color. No rash, cyanosis, diaphoresis, erythema, or pallor - General Limitations: no limitations General appearance: alert, in no apparent distress Course Course Narrative: CBC, BMP, BNP, troponin EKG/old EKG, chest x-ray Lactate, blood culture Vital Signs Temperature 98.4 F 09/13/18 13:10 Pulse Rate 87 09/13/18 13:10 Respiratory Rate 18 09/13/18 13:10 Blood Pressure 177/77 09/13/18 13:10 O2 Sat by Pulse Oximetry 96 09/13/18 13:10 Temperature 98.4 F 09/13/18 13:59 Pulse Rate 79 09/13/18 16:00 Respiratory Rate 18 09/13/18 16:00 Blood Pressure 135/78 09/13/18 16:00 O2 Sat by Pulse Oximetry 98 09/13/18 16:00 Oxygen Delivery Oxygen Delivery Room Air Medical Decision Making - [facility] Narrative Medical decision making narrative: Patient's laboratory imaging results are consistent with congestive heart failure exacerbation Patient be admitted to hospitalist medicine service for congestive heart failure and failure to thrive. Patient family verbalized their understanding and agreement with this plan Dr. Pastor accepting admission. - Lab Data Lab results reviewed: Yes I reviewed the patient's lab results. Result diagrams: 09/13/18 14:20 09/13/18 14:20 Lab Results 09/13/18 09/13/18 09/13/18 Range/Units 14:20 14:20 14:20 WBC 6.0 (4.3-11.1) K/mcL RBC 3.83 (3.82-4.97) M/mcL Hgb 12.2 (11.5-15.4) g/dL Hct 37.5 (35.3-44.9) % MCV 97.9 (83.0-100.0) fL MCH 31.9 (28.0-33.3) pg MCHC 32.5 (31.6-35.5) g/dL RDW 12.0 (11.5-14.5) % Plt Count 313 (140-400) K/mcL MPV 9.8 (9.4-12.4) fL Immature Gran % 0.3 (0-4) % Seg Neutrophils % 72.4 % Lymphocytes % 10.3 % Monocytes % 14.9 % Eosinophils % 1.3 % Basophils % 0.8 % Neutrophils # 4.4 (1.6-8.9) K/mcL Lymphocytes # 0.6 (0.6-4.6) K/mcL Monocytes # 0.9 (0.0-1.3) K/mcL Eosinophils # 0.1 (0.0-0.6) K/mcL Basophils # 0.1 (0.0-0.2) K/mcL Sodium 136 (136-145) mEq/L Potassium 4.1 (3.5-5.1) mEq/L Chloride 101 (98-107) mEq/L Carbon Dioxide 27 (23-29) mEq/L BUN 21 (8-23) mg/dL Creatinine 1.16 (0.60-1.20) mg/dL Est GFR ( Amer) 54 L (> 60) Est GFR (Non-Af Amer) 44 L (> 60) BUN/Creatinine Ratio 18 (6-26) Glucose 105 (70-105) mg/dL Calculated Osmolality 285 (280-300) Lactic Acid 0.9 (0.5-2.2) mmol/L Calcium 9.7 (8.6-10.3) mg/dL Troponin I < 0.03 (< 0.04) ng/mL B-Natriuretic Peptide (Less than 100) pg/mL 09/13/18 Range/Units 14:20 WBC (4.3-11.1) K/mcL RBC (3.82-4.97) M/mcL Hgb (11.5-15.4) g/dL Hct (35.3-44.9) % MCV (83.0-100.0) fL MCH (28.0-33.3) pg MCHC (31.6-35.5) g/dL RDW (11.5-14.5) % Plt Count (140-400) K/mcL MPV (9.4-12.4) fL Immature Gran % (0-4) % Seg Neutrophils % % Lymphocytes % % Monocytes % % Eosinophils % % Basophils % % Neutrophils # (1.6-8.9) K/mcL Lymphocytes # (0.6-4.6) K/mcL Monocytes # (0.0-1.3) K/mcL Eosinophils # (0.0-0.6) K/mcL Basophils # (0.0-0.2) K/mcL Sodium (136-145) mEq/L Potassium (3.5-5.1) mEq/L Chloride (98-107) mEq/L Carbon Dioxide (23-29) mEq/L BUN (8-23) mg/dL Creatinine (0.60-1.20) mg/dL Est GFR ( Amer) (> 60) Est GFR (Non-Af Amer) (> 60) BUN/Creatinine Ratio (6-26) Glucose (70-105) mg/dL Calculated Osmolality (280-300) Lactic Acid (0.5-2.2) mmol/L Calcium (8.6-10.3) mg/dL Troponin I (< 0.04) ng/mL B-Natriuretic Peptide 172 H (Less than 100) pg/mL - Radiology Data Radiology results reviewed: Yes I reviewed the patient's radiology results. Chest X-Ray 09/13/18 14:11 IMPRESSION: Small to moderate right pleural effusion D/ / Desean Hendricks MD / Desean Hendricks MD Interpreting Provider: Desean Hendricks MD - EKG Data EKG #1 EKG attestation: Yes I reviewed and interpreted this EKG. EKG results narrative: Patient's EKG shows sinus rhythm with a first-degree AV block, heart rate of 80 bpm, [place] interval of 2443 ms, QR mosque of 77 ms, QT/QTc interval of 375/433 ms respectively. There are no significant ST segment elevations, depressions, pathologic Q's, abnormal T-wave inversions, or any other signs of acute ischemic change. This EKG performed today is generally consistent with prior EKG performed on 07/20/2017.
--- NOTE | 2018-09-13 14:16 | Emergency Department Note ---
Disposition Clinical Impression: Pleural effusion, Generalized weakness Disposition: Admitted As Inpatient Time of Disposition: 16:04 General Adult HPI - General Chief complaint: ED Weakness Stated complaint: weak, N/V Time Seen by Provider: 09/13/18 13:21 Source: patient, family Mode of arrival: ambulatory Limitations: no limitations - History of Present Illness Pain Scale: 7 Associated symptoms: Reports: chest pain, cough, fever/chills, headaches, loss of appetite, malaise, nausea/vomiting, shortness of breath, weakness - Related Data Home Medications Medication Instructions Recorded Confirmed Atorvastatin [Lipitor] 20 mg PO HS 12/19/14 06/07/18 PredniSONE 2.5 mg PO TID 03/26/15 12/05/17 Cholecalciferol (D-3) [Vitamin D] 5,000 unit PO DAILY 06/22/17 06/07/18 dilTIAZem HCl [Diltiazem ER] 240 mg PO DAILY 06/22/17 06/07/18 Albuterol Sulfate [Proair Hfa] 2 puff IH Q4H PRN 07/20/17 06/07/18 Losartan Potassium [Cozaar] 100 mg PO DAILY 07/20/17 06/07/18 Mv-Mn/FA/Vit K/Lycop/Lut/Coq10 1 tab PO DAILY 07/20/17 06/07/18 [Daily Multivitamin Capsule] Lactobacillus Combination No.8 2 cap PO DAILY 12/05/17 06/07/18 [Adult Probiotic] metFORMIN [Glucophage] 500 mg PO DAILY 06/07/18 06/07/18 Previous Rx's Medication Instructions Recorded Omeprazole [PriLOSEC] 20 mg PO DAILY #30 cap 07/01/16 Saccharomyces Boulardii [Florastor] 250 mg PO BID #20 capsule 07/08/17 Allergies Allergy/AdvReac Type Severity Reaction Status Date / Time chlorthalidone Allergy See Verified 09/13/18 13:09 Comments codeine Allergy Hives Verified 09/13/18 13:09 metoprolol Allergy See Verified 09/13/18 13:09 Comments Past Medical History - Past Medical History Medical history: Reports: arthritis, cancer, COPD, hyperlipidemia, hypertension Surgical history: Reports: breast surgery Psychiatric history: Reports: no psych history - Social History Smoking Status: Never smoker Smokeless Tobacco Status: No Alcohol use: Reports: none Drug use: Reports: none Physical Exam - General Limitations: no limitations General appearance: alert, in no apparent distress Course Vital Signs Temperature 98.4 F 09/13/18 13:10 Pulse Rate 87 09/13/18 13:10 Respiratory Rate 18 09/13/18 13:10 Blood Pressure 177/77 09/13/18 13:10 O2 Sat by Pulse Oximetry 96 09/13/18 13:10 Temperature 98.4 F 09/13/18 13:59 Pulse Rate 79 09/13/18 16:00 Respiratory Rate 18 09/13/18 16:00 Blood Pressure 135/78 09/13/18 16:00 O2 Sat by Pulse Oximetry 98 09/13/18 16:00 Oxygen Delivery Oxygen Delivery Room Air Medical Decision Making - Lab Data Result diagrams: 09/13/18 14:20 09/13/18 14:20 Lab Results 09/13/18 09/13/18 09/13/18 Range/Units 14:20 14:20 14:20 WBC 6.0 (4.3-11.1) K/mcL RBC 3.83 (3.82-4.97) M/mcL Hgb 12.2 (11.5-15.4) g/dL Hct 37.5 (35.3-44.9) % MCV 97.9 (83.0-100.0) fL MCH 31.9 (28.0-33.3) pg MCHC 32.5 (31.6-35.5) g/dL RDW 12.0 (11.5-14.5) % Plt Count 313 (140-400) K/mcL MPV 9.8 (9.4-12.4) fL Immature Gran % 0.3 (0-4) % Seg Neutrophils % 72.4 % Lymphocytes % 10.3 % Monocytes % 14.9 % Eosinophils % 1.3 % Basophils % 0.8 % Neutrophils # 4.4 (1.6-8.9) K/mcL Lymphocytes # 0.6 (0.6-4.6) K/mcL Monocytes # 0.9 (0.0-1.3) K/mcL Eosinophils # 0.1 (0.0-0.6) K/mcL Basophils # 0.1 (0.0-0.2) K/mcL Sodium 136 (136-145) mEq/L Potassium 4.1 (3.5-5.1) mEq/L Chloride 101 (98-107) mEq/L Carbon Dioxide 27 (23-29) mEq/L BUN 21 (8-23) mg/dL Creatinine 1.16 (0.60-1.20) mg/dL Est GFR ( Amer) 54 L (> 60) Est GFR (Non-Af Amer) 44 L (> 60) BUN/Creatinine Ratio 18 (6-26) Glucose 105 (70-105) mg/dL Calculated Osmolality 285 (280-300) Lactic Acid 0.9 (0.5-2.2) mmol/L Calcium 9.7 (8.6-10.3) mg/dL Troponin I < 0.03 (< 0.04) ng/mL B-Natriuretic Peptide (Less than 100) pg/mL 09/13/18 Range/Units 14:20 WBC (4.3-11.1) K/mcL RBC (3.82-4.97) M/mcL Hgb (11.5-15.4) g/dL Hct (35.3-44.9) % MCV (83.0-100.0) fL MCH (28.0-33.3) pg MCHC (31.6-35.5) g/dL RDW (11.5-14.5) % Plt Count (140-400) K/mcL MPV (9.4-12.4) fL Immature Gran % (0-4) % Seg Neutrophils % % Lymphocytes % % Monocytes % % Eosinophils % % Basophils % % Neutrophils # (1.6-8.9) K/mcL Lymphocytes # (0.6-4.6) K/mcL Monocytes # (0.0-1.3) K/mcL Eosinophils # (0.0-0.6) K/mcL Basophils # (0.0-0.2) K/mcL Sodium (136-145) mEq/L Potassium (3.5-5.1) mEq/L Chloride (98-107) mEq/L Carbon Dioxide (23-29) mEq/L BUN (8-23) mg/dL Creatinine (0.60-1.20) mg/dL Est GFR ( Amer) (> 60) Est GFR (Non-Af Amer) (> 60) BUN/Creatinine Ratio (6-26) Glucose (70-105) mg/dL Calculated Osmolality (280-300) Lactic Acid (0.5-2.2) mmol/L Calcium (8.6-10.3) mg/dL Troponin I (< 0.04) ng/mL B-Natriuretic Peptide 172 H (Less than 100) pg/mL Attestation Statement - Attestation Attestation: I examined this patient and my medical decision-making was reviewed with the Resident Physician. I agree with the documented findings, disposition and hakeem atment plan as described except to the extent set forth below. Patient presents to the ED with a chief complaint of pain in her ribs up to her shoulders. Onset months ago. Patient is currently being treated for chronic infection in her lungs. She is unaware what the infection is. She is taking Bactrim 3 times a day. She has been for approximately 6 months. Over the past couple weeks she has been increasingly weak. Trouble walking. Aversion to food. Fever and chills. On exam she is in no distress. Abdomen is soft. Lungs are clear. Plan. We will review her old charts. She is under the care of infectious disease and pulmonology. Disposition pending workup. Patient has a new effusion which is probably causing her pain and symptoms. We will start on some IV antibiotics. Patient will be admitted to the hospitalist. Chest X-Ray 09/13/18 14:11 IMPRESSION: Small to moderate right pleural effusion D/ / Desean Hendricks MD / Desean Hendricks MD Interpreting Provider: Desean Hendricks MD
[2018-09-13 14:43] LABS: Basophils # 0.1 K/mcL (0.0-0.2); Basophils % 0.8 %; Eosinophils # 0.1 K/mcL (0.0-0.6); Eosinophils % 1.3 %; Hematocrit 37.5 % (35.3-44.9); Hemoglobin 12.2 g/dL (11.5-15.4); Immature Granulocytes % 0.3 % (0-4); Lymphocytes # 0.6 K/mcL (0.6-4.6); Lymphocytes % 10.3 %; Mean Corpuscular HGB Conc 32.5 g/dL (31.6-35.5); Mean Corpuscular Hemoglobin 31.9 pg (28.0-33.3); Mean Corpuscular Volume 97.9 fL (83.0-100.0); Mean Platelet Volume 9.8 fL (9.4-12.4); Monocytes # 0.9 K/mcL (0.0-1.3); Monocytes % 14.9 %; Neutrophils # 4.4 K/mcL (1.6-8.9); Platelet Count 313 K/mcL (140-400); Red Blood Count 3.83 M/mcL (3.82-4.97); Segmented Neutrophils % 72.4 %
[2018-09-13 15:00] LABS: BUN/Creatinine Ratio 18 (6-26); Blood Urea Nitrogen 21 mg/dL (8-23); Calcium 9.7 mg/dL (8.6-10.3); Carbon Dioxide 27 mEq/L (23-29); Chloride 101 mEq/L (98-107); Glucose 105 mg/dL (70-105); Osmolality,Calculated 285 (280-300); Potassium 4.1 mEq/L (3.5-5.1); Sodium 136 mEq/L (136-145); Troponin I < 0.03 ng/mL (< 0.04); eGFR For African Americans 54 (> 60); eGFR For Non-African Americans 44 (> 60)
[2018-09-13] MEDS ORDERED: Piperacillin/Tazobactam 3.375 GM in 0.9 % Sodium Chloride Mini Bag 100 ML IVPB ONE (16:33)
--- NOTE | 2018-09-13 16:54 | Internal Med History&Physical ---
Date of Encounter: 09/13/18 Time of Encounter: 16:50 Internal Medicine - H&P: HPI Chief complaint: fever, cough, sob, chest pain Admitted From: Home Plans for Post Hospital Care: Home History of present illness: Ms. 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 Family is at bedside and they are feeling she is deteriorating or past few months in terms of overall well-being and increasingly less active. Patient has been having cough and mild shortness of breath with right-sided rib pain on the back for about a week. She was also experiencing fevers and chills with max temperature noted about 102 about 4 days ago. 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 Baker. Patient was recently found to have hypothyroidism in May and was started on thyroid replacement. Patient does not know the dose and has not had a follow-up TSH or increase in her dosage. She did have one episode of vomiting. She developed C. difficile last year in July based on old records. She denies any burning urination, diarrhea or back pain. Denies any left-sided chest pain. She did notice increased shortness of breath for about one week at least. She denies feeling significant lower extremity swelling. Denies any sore throat, runny nose or earaches. Patient was evaluated in the ER with labs being more or less unremarkable except mildly elevated BNP and small to moderate right-sided pleural effusion. Admission was requested for further management especially for pleural effusion and CHF. Patient was evaluated in the ER. The complain of some right-sided rib pain with coughing. Denies any significant shortness of breath while resting. About mentioned history was corroborated. Patient does not know her medication and did not have her list. They did mention some allergic reaction to IV dye before but not any life-threatening illness. Past Med Surg Social Fam HX - Past Medical History Medical history: arthritis, cancer, COPD, hyperlipidemia, hypertension Additional medical history: Lung cancer in remission, Macular degeneration. kidney stone. Hearing loss. Neuropathy. Lichen planus Psychiatric history: no psych history - Past Surgical History Surgical History: breast surgery Additional surgical history: breast surgery, and 2 D&C's - Social History Smoking Status: Never smoker Smokeless Tobacco Status: No Alcohol use: none Drug use: none - Family History Mother Living Status: Hx Family Cardiac Disorders: Yes (cardiac arrest, htn) Hx Family Cancer: Yes (kidney) Father Living Status: Hx Family Endocrine Disorder: Yes (DM) Internal Medicine - H&P: Meds Atorvastatin [Lipitor] 20 mg PO HS 12/19/14 [History] PredniSONE 2.5 mg PO TID 03/26/15 [History] Omeprazole [PriLOSEC] 20 mg PO DAILY #30 cap 07/01/16 [Rx] Cholecalciferol (D-3) [Vitamin D] 5,000 unit PO DAILY 06/22/17 [History] dilTIAZem HCl [Diltiazem ER] 240 mg PO DAILY 06/22/17 [History] Saccharomyces Boulardii [Florastor] 250 mg PO BID #20 capsule 07/08/17 [Rx] Albuterol Sulfate [Proair Hfa] 2 puff IH Q4H PRN 07/20/17 [History] Losartan Potassium [Cozaar] 100 mg PO DAILY 07/20/17 [History] Mv-Mn/FA/Vit K/Lycop/Lut/Coq10 [Daily Multivitamin Capsule] 1 tab PO DAILY 07/20/17 [History] Lactobacillus Combination No.8 [Adult Probiotic] 2 cap PO DAILY 12/05/17 [History] metFORMIN [Glucophage] 500 mg PO DAILY 06/07/18 [History] Allergy/AdvReac Type Severity Reaction Status Date / Time chlorthalidone Allergy See Verified 09/13/18 13:09 Comments codeine Allergy Hives Verified 09/13/18 13:09 metoprolol Allergy See Verified 09/13/18 13:09 Comments All Systems PM: A 10-system review of systems was performed and is negative for pertinent findings except as documented above in the HPI. - Constitutional Vitals: Temp Pulse Resp BP Pulse Ox 98.4 F 79 18 135/78 98 09/13/18 13:59 09/13/18 16:00 09/13/18 16:00 09/13/18 16:00 09/13/18 16:00 Exam: Constitutional: Vitals as noted. Conversant. No Apparent Distress. appears slightly apathetic Eyes : Sclera white, conjunctiva clear, no lid lag, PEARLA. ENT : decreased hearing. Moist mucus membranes. No JVD, no cervical lymphadenopathy. no thyromegaly or mass. Respiratory : Clear to auscultation bilaterally. No accessory muscle use, rales, rhonchi or wheezes, Cardiovascular : RRR, +S1, +S2. no murmur, gallop, rubs. No chest wall tenderness GI/Abdominal : Soft, Non-tender, Non-distended, normal bowel sounds, no peritoneal signs. no orgenomegaly or mass appreciated. no hernia. Musculoskeletal: no deformity noted. 1+ pedal edema, pulses palpable and symmetrical in UE/LE. no calf tenderness. Neurological: AO X3, CN II-XII grossly intact, grossly normal motor and sensory exam. Skin: No skin rash, lesions or ulcers noted. Pych: Good insight and judgement. Intact memory. AOx3. Internal Med - H&P Results - Labs CBC & Chem 7: 09/13/18 14:20 09/13/18 14:20 Labs: Short CBC 09/13/18 Range/Units 14:20 WBC 6.0 (4.3-11.1) K/mcL Hgb 12.2 (11.5-15.4) g/dL Hct 37.5 (35.3-44.9) % Plt Count 313 (140-400) K/mcL Neutrophils # 4.4 (1.6-8.9) K/mcL BMP 09/13/18 14:20 Sodium 136 Potassium 4.1 Chloride 101 Carbon Dioxide 27 BUN 21 Creatinine 1.16 Glucose 105 Calcium 9.7 Cardiac Enzymes 09/13/18 Range/Units 14:20 Troponin I < 0.03 (< 0.04) ng/mL - EKG Data EKG shows normal: sinus rhythm (NH prolongation) - Impressions ITS Impressions Chest X-Ray 09/13/18 14:11 IMPRESSION: Small to moderate right pleural effusion D/ / Desean Hendricks MD / Desean Hendricks MD Interpreting Provider: Desean Hendricks MD - Assessment and Plan (1) Fever Current Visit: Yes Status: Acute Assessment and plan: Patient with fever with unclear source. Possibility pulmonary source. Patient is immunosuppressed with prednisone and plaquanil CBC BMP unremarkable. Does have small to moderate pleural effusion with some Rt sided pain. We will obtain CT chest to further evaluate. We will add ESR CRP and pro calcitonin in ER labs. Obtain RIP, MRSA screen, sputum and blood cultures It appears patient had vancomycin and Zosyn ordered in ER. We will hold for now. Patient does not appear to be septic, without elevated lactic acid, tachycardia or hemodynamic instability. Continue patient's Bactrim she was on for nocardia pneumonia. We will obtain infectious disease consultation. obtain CMP in the morning and repeat CBC Qualifiers: Fever type: unspecified Qualified Code(s): R50.9 - Fever, unspecified (2) History of lung cancer Current Visit: Yes Status: Acute Assessment and plan: History of adenocarcinoma of right lung Has been in remission. Last seen by oncology early this year without any changes CT chest has been ordered. Obtain calcium and PTH in the morning (3) Hypothyroidism Current Visit: Yes Status: Acute Assessment and plan: Obtain TSH in morning If undertreated may be contributing to feeling weak continue home dose for now. May adjust if significantly elevated TSH Qualifiers: Hypothyroidism type: unspecified Qualified Code(s): E03.9 - Hypothyroidism, unspecified (4) Generalized weakness Current Visit: Yes Status: Acute Assessment and plan: workup as above (5) Pleural effusion Current Visit: Yes Status: Acute Assessment and plan: Does not appear to be septic as of now f/u CT chest f/u ECHO Hold new antibiotics as of now (6) COPD (chronic obstructive pulmonary disease) Current Visit: No Status: Acute Assessment and plan: COntinue home medication once confirmed Qualifiers: COPD type: unspecified COPD Qualified Code(s): J44.9 - Chronic obstructive pulmonary disease, unspecified (7) Chronic steroid use Current Visit: No Status: Acute (8) HLD (hyperlipidemia) Current Visit: No Status: Acute Assessment and plan: continue home medications Qualifiers: Hyperlipidemia type: unspecified Qualified Code(s): E78.5 - Hyperlipidemia, unspecified (9) HTN (hypertension) Current Visit: No Status: Acute Assessment and plan: continue home medications Qualifiers: Hypertension type: essential hypertension Qualified Code(s): I10 - Essential (primary) hypertension (10) DVT prophylaxis Current Visit: No Status: Acute Assessment and plan: Heparin sc - Time Spent With Patient Total time spent is greater than 50% in coordination of care (as documented) at patient's floor/unit and/or counseling patient:
[2018-09-13] MEDS ORDERED: Naloxone 0.4 MG/ML INJ IVP PRN (16:58)
[2018-09-13 17:22] LABS: C-Reactive Protein 11 mg/L (Less than 10)
[2018-09-13] MEDS ORDERED: Perflutren Lipid Microsphere 1.3 ML in 0.9 % Sodium Chloride 8.7 ML IVP ONE (19:20)
[2018-09-13] MEDS: *HR* Heparin 5,000 UNIT/ML VIAL SQ SCH (20:42)
[2018-09-13] MEDS: Sulfamethoxazole/Trimeth DS 1 EACH TABLET PO SCH (20:42)
[2018-09-13 22:12] LABS: Adenovirus Not Detected (Not Detect); Bordetella Pertussis Not Detected (Not Detect); Chlamydophila pneumoniae Not Detected (Not Detect); Coronavirus 229E Not Detected (Not Detect); Coronavirus HKU1 Not Detected (Not Detect); Coronavirus NL63 Not Detected (Not Detect); Coronavirus OC43 Not Detected (Not Detect); Human Metapneumovirus Not Detected (Not Detect); Human Rhinovirus/Enterovirus Not Detected (Not Detect); Influenza A Subtype 2009 H1 Not Detected (Not Detect); Influenza A Untypeable Not Detected (Not Detect); Influenza B Not Detected (Not Detect); Mycoplasma pneumoniae Not Detected (Not Detect); Parainfluenza Virus 1 Not Detected (Not Detect); Parainfluenza Virus 2 Not Detected (Not Detect); Parainfluenza Virus 3 Not Detected (Not Detect); Parainfluenza Virus 4 Not Detected (Not Detect); Respiratory Syncytial Virus Not Detected (Not Detect)
[2018-09-14] MEDS: *HR* Heparin 5,000 UNIT/ML VIAL SQ SCH ×3 (05:36→20:48)
[2018-09-14 06:31] LABS: Hematocrit 38.5 % (35.3-44.9); Hemoglobin 12.6 g/dL (11.5-15.4); Mean Corpuscular HGB Conc 32.7 g/dL (31.6-35.5); Mean Corpuscular Hemoglobin 32.1 pg (28.0-33.3); Mean Platelet Volume 9.8 fL (9.4-12.4); Platelet Count 316 K/mcL (140-400); Red Blood Count 3.93 M/mcL (3.82-4.97); White Blood Count 5.1 K/mcL (4.3-11.1)
[2018-09-14 06:43] LABS: Prothrombin Time 11.1 Seconds (9.4-12.1)
[2018-09-14 06:53] LABS: Alanine Aminotransferase 11 Units/L (7-52); Albumin 3.6 g/dL (3.5-5.7); Albumin/Globulin Ratio 1.5 (1.1-2.2); Alkaline Phosphatase 91 Units/L (34-104); Aspartate Amino Transferase 22 Units/L (13-39); BUN/Creatinine Ratio 15 (6-26); Bilirubin,Total 0.3 mg/dL (0.3-1.0); Blood Urea Nitrogen 16 mg/dL (8-23); Calcium 9.5 mg/dL (8.6-10.3); Carbon Dioxide 24 mEq/L (23-29); Chloride 103 mEq/L (98-107); Globulin 2.4 g/dL (2.4-3.5); Glucose 102 mg/dL (70-105); Lactate Dehydrogenase 123 Units/L (140-271); Osmolality,Calculated 283 (280-300); Potassium 4.3 mEq/L (3.5-5.1); Sodium 136 mEq/L (136-145); Troponin I < 0.03 ng/mL (< 0.04); eGFR For African Americans > 60 (> 60); eGFR For Non-African Americans 50 (> 60)
[2018-09-14 07:06] LABS: Thyroid Stimulating Hormone 3.851 mcIU/mL (0.340-5.600)
[2018-09-14] MEDS: Sulfamethoxazole/Trimeth DS 1 EACH TABLET PO SCH ×4 (07:08→19:30)
--- NOTE | 2018-09-14 09:03 | Internal Med Progress Note ---
Hospitalist Progress Note - Encounter Date of Encounter: 09/14/18 Time of Encounter: 07:02 - Subjective Interval History: Seen and examined this morning that side. No acute overnight events. Denies any new symptoms. Afebrile. No nausea vomiting diarrhea. Breathing at baseline. - Exam Vitals: Temp Pulse Resp BP Pulse Ox 98.7 F 75 16 150/69 95 09/14/18 07:30 09/14/18 07:30 09/14/18 07:30 09/14/18 07:30 09/14/18 07:30 Exam: Constitutional: In no distress ENT : decreased hearing. Moist mucus membranes. No JVD, no cervical lymphadenopathy. no thyromegaly or mass. Respiratory : Clear to auscultation bilaterally. No accessory muscle use, rales, rhonchi or wheezes, Cardiovascular : RRR, +S1, +S2. no murmur, gallop, rubs. GI/Abdominal : Soft, Non-tender, Non-distended, no peritoneal signs. Musculoskeletal: no deformity noted. 1+ pedal edema, no calf tenderness. Neurological: AO X3, CN II-XII grossly intact, grossly normal motor and sensory exam. - Assessment and Plan (1) Fever Current Visit: Yes Status: Acute (2) History of lung cancer Current Visit: Yes Status: Acute (3) Hypothyroidism Current Visit: Yes Status: Acute (4) Generalized weakness Current Visit: Yes Status: Acute (5) Pleural effusion Current Visit: Yes Status: Acute (6) COPD (chronic obstructive pulmonary disease) Current Visit: No Status: Acute (7) Chronic steroid use Current Visit: No Status: Acute (8) HLD (hyperlipidemia) Current Visit: No Status: Acute (9) HTN (hypertension) Current Visit: No Status: Acute (10) DVT prophylaxis Current Visit: No Status: Acute - Summary of Assessment and Plan Summary of Assessment and Plan: Assessment Acute Fever, generalized weakness Pleural effusion Elevated BNP DVT prophylaxis Chronic h/o Nocardia pneumonia H/o adenoca of rt lung in remission Hypothryoidism COPD Lichen planus HLD HTN DM Hearing loss , 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 Had high fevers at home. None documented here. Procal negative. Does have elevated ESR/CRP. Has h/o Nocardia PNA and lichen planus. On Bactrim which is continued. Hold abx for now. - Plan for thorocentesis IR guided. Blood culture NGTD, Urine ag, RIP and MRSA negative. ID consulted - CT with effusion and some consolidation, bronchiectasis seen previously as well. - f/u ECHO. Previously with EF 65, mild LV DD, mild Pul HTN. - TSH, Calcium and PTH normal - Time Spent with Patient Total time spent is greater than 50% in coordination of care (as documented) at patient's floor/unit and/or counseling patient: Internal Medicine: Result - Labs CBC & Chem 7: 09/14/18 06:13 09/14/18 06:13 Labs: Short CBC 09/13/18 09/14/18 Range/Units 14:20 06:13 WBC 6.0 5.1 (4.3-11.1) K/mcL Hgb 12.2 12.6 (11.5-15.4) g/dL Hct 37.5 38.5 (35.3-44.9) % Plt Count 313 316 (140-400) K/mcL Neutrophils # 4.4 (1.6-8.9) K/mcL BMP 09/13/18 09/14/18 14:20 06:13 Sodium 136 136 Potassium 4.1 4.3 Chloride 101 103 Carbon Dioxide 27 24 BUN 21 16 Creatinine 1.16 1.04 Glucose 105 102 Calcium 9.7 9.5 Cardiac Enzymes 09/13/18 09/14/18 Range/Units 14:20 06:13 Troponin I < 0.03 < 0.03 (< 0.04) ng/mL Liver Function 09/14/18 Range/Units 06:13 Total Bilirubin 0.3 (0.3-1.0) mg/dL AST 22 (13-39) Units/L ALT 11 (7-52) Units/L Alkaline Phosphatase 91 (34-104) Units/L Albumin 3.6 (3.5-5.7) g/dL - ABG Interpretation ABG results: PT/INR, D-dimer PT 11.1 Seconds (9.4-12.1) 09/14/18 06:13 - Impressions Impressions Chest X-Ray 09/13/18 14:11 IMPRESSION: Small to moderate right pleural effusion D/ / Desean Hendricks MD / Desean Hendricks MD Interpreting Provider: Desean Hendricks MD Chest CT 09/13/18 17:04 IMPRESSION: Small to moderate right pleural effusion, new. No significant change otherwise in appearance of the lungs. D/ / Danya Canas MD / Danya Canas MD Interpreting Provider: Danya Canas MD Consult Discharge Plan - Plan Referrals: Jorge Moya MD [Primary Care Provider] - (Appointment has been requested.) (1) Fever Qualifiers: Fever type: unspecified Qualified Code(s): R50.9 - Fever, unspecified (3) Hypothyroidism Qualifiers: Hypothyroidism type: unspecified Qualified Code(s): E03.9 - Hypothyroidism, unspecified (6) COPD (chronic obstructive pulmonary disease) Qualifiers: COPD type: unspecified COPD Qualified Code(s): J44.9 - Chronic obstructive pulmonary disease, unspecified (8) HLD (hyperlipidemia) Qualifiers: Hyperlipidemia type: unspecified Qualified Code(s): E78.5 - Hyperlipidemia, unspecified (9) HTN (hypertension) Qualifiers: Hypertension type: essential hypertension Qualified Code(s): I10 - Essential (primary) hypertension
[2018-09-14] MEDS ORDERED: Triamcinolone Acet Dentl Paste 5 GM TUBE TP PRN (09:04)
--- NOTE | 2018-09-14 09:44 | Electrocardiograph Report ---
[address] [place] [address] Test Date: 2018-09-13 Pat Name: Sherry Mcgraw Department: [id number] Room: 3B13 Gender: F [employer] Supervisor: : [id number] Requested By: Maury Cuba Order Number: [id number] Reading MD: Joelle Crespo Measurements Intervals [place] Rate: 80 P: 70 OK: 243 QRS: 69 QRSD: 77 T: 49 QT: 375 QTc: 433 Interpretive Statements Sinus rhythm Prolonged OK interval Low voltage, precordial leads Probable anteroseptal infarct, old Electronically Signed On 09-14-2018 9:43:11 EDT by Joelle Crespo
[2018-09-14] MEDS: Budesonide/Formoterol 160/4.5 1 PUFF INH IH SCH ×2 (11:22→22:25)
--- NOTE | 2018-09-14 12:07 | Infectious Disease Consult ---
Infectious Disease-Consult - Encounter Date/Time Date of Encounter: 09/14/18 Time of Encounter: 12:03 - Data of Consult Patient: known to practice within the last 3 years Reason for consult: Nocardia PNA Consult date: 09/14/18 Requesting Physician: Tyrone Estrella MD Primary Care Provider: Jorge Moya MD - HPI HPI: Ms. 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 The patient was admitted to the hospital 09/13/18 for CHF exacerbation. We are consulted 09/14/18 for further recommendations for nocardia pneumonia. 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 She was started on Bactrim treatment back in April and was scheduled to undergo a repeat CT scan of the chest later this month with plans to complete treatment in the middle of September. Apparently, over the past 3 weeks she has had progressive weakness, nausea, and vomiting since she called the office yesterday and was advised to come to the ER for evaluation. Upon arrival, she was afebrile hemodynamically stable. Laboratory studies revealed normal white blood cell count, renal function, and lactic acid. ESR is elevated at 53 with a CRP of 11. BNP was elevated at 172. Troponin was negative. Chest x-ray showed a small to moderate right pleural effusion. Blood cultures were obtained 2 sets and are pending. She was admitted to the hospital for further evaluation and treatment. Since admission, the patient has remained afebrile and hemodynamically stable. She has CT of the chest that confirmed a small to moderate right-sided pleural effusion and also showed patchy consolidation in the left lower lobe, left upper lobe, right lower lobe, right upper lobe that is unchanged since previous imaging. Strep pneumococcal legionella urinary antigens were negative. Respiratory infectious panel was negative. MRSA nasal screen was negative. She had a transthoracic echocardiogram showed EF 65%. Interventional radiology has been consulted and she is scheduled to undergo a therapeutic thoracentesis later today. Currently, she is on oral Bactrim as prescribed by Dr. Warren in the clinic. We have asked to evaluate and make further recommendations. During my exam today, the patient's daughter tells me that over the past 2-3 weeks she has had nausea and fatigue and generally not feeling well. She reports some shortness of breath with bilateral rib pain, worse with deep inspiration and cough. Denies fevers, chills, or rigors. Denies headache or neck pain. Denies congestion, earache, or sore throat. Reports chronic cough with white sputum. Reports some upper abdominal pain that she describes as burning. Denies vomiting, diarrhea, or constipation. Reports an overall poor appetite the last couple of weeks and an 11lb. weight loss. Denies back, flank, extremity, or joint pain. She states her mouth is doing better. The patient lives at home with her . She is retired. Denies travel. Denies alcohol, illicit drug use, or tobacco use. Has a dog at home. Is currently taking plaquenil for lichen planus. - ROS Review of Systems: All systems reviewed and no additional remarkable complaints except as stated. - Results CBC & Chem 7: 09/14/18 06:13 09/14/18 06:13 - Exam Vitals: Temp Pulse Resp BP Pulse Ox 98.3 F 76 16 147/65 95 09/14/18 11:07 09/14/18 11:07 09/14/18 11:22 09/14/18 11:07 09/14/18 11:22 Exam: Head: Atraumatic, normal inspection, normocephalic. Eye: EOMI, PERRLA, no scleral icterus noted. ENT: Mucous membranes moist. No odontogenic infection noted. Oral lesions noted secondary to lichen planus. Neck: Normal inspection, no meningismus. Respiratory: Clear to auscultation. No rales, respiratory distress, rhonchi, or wheezes noted. Cardiovascular: Regular rate and rhythm, S1 and S2 audible. No murmurs, rubs, or gallops. GI: Soft, nondistended, normal bowel sounds. Extremities:No joint swelling, pedal edema, or tenderness noted. Back: Normal inspection. No vertebral tenderness noted. Neurological: Alert, oriented 3, no focal deficits. Psychiatric: normal affect, normal mood. Skin: Dry, intact, warm. Normal color. No rashes. Omeprazole [PriLOSEC] 20 mg PO DAILY #30 cap 07/01/16 [Rx] Cholecalciferol (D-3) [Vitamin D] 5,000 unit PO Q48H 06/22/17 [History] Mv-Mn/FA/Vit K/Lycop/Lut/Coq10 [Daily Multivitamin Capsule] 2 tab PO DAILY 07/20/17 [History] Lactobacillus Combination No.8 [Adult Probiotic] 1 cap PO DAILY 12/05/17 [History] Albuterol Sulfate [Ventolin Hfa] 2 puff IH Q4H PRN 09/13/18 [History] Atorvastatin Calcium [Lipitor] 20 mg PO DAILY 09/13/18 [History] Budesonide/Formoterol 160/4.5 [Symbicort 160/4.5] 2 puff IH BID 09/13/18 [History] Diltiazem CD (24hr) [Cardizem CD] 240 mg PO DAILY 09/13/18 [History] Hydroxychloroquine [Plaquenuil] 200 mg PO DAILY 09/13/18 [History] Levothyroxine Sodium [Levo-T] 50 mcg PO QAM 09/13/18 [History] Metformin HCl [Glumetza] 500 mg PO QPM 09/13/18 [History] Metoprolol Succinate [Toprol Xl] 25 mg PO DAILY 09/13/18 [History] Sulfamethoxazole/Trimeth DS [Bactrim DS] 1 tab PO Q8H 09/13/18 [History] Triamcinolone Acetonide 1 appl TP QID PRN 09/13/18 [History] Allergy/AdvReac Type Severity Reaction Status Date / Time chlorthalidone Allergy See Verified 09/13/18 13:09 Comments codeine Allergy Hives Verified 09/13/18 13:09 metoprolol Allergy See Verified 09/13/18 13:09 Comments - Assessment and Plan (1) Nausea Current Visit: Yes Status: Acute Etiology: Unclear -- medication vs. other. LFTs normal. Will check amylase and lipase. May need to consider GI to evaluate. Symptomatic management per the primary team. SNOMED Code(s): 166271919 (2) Pleural effusion Current Visit: Yes Status: Acute Likely secondary to CHF exacerbation. CT chest showed a right small-moderate pleural effusion, but no PNA. IR consulted. Attempted bedside aspiration, but unsuccessful. Planning thoracentesis in the IR suite later today. SNOMED Code(s): 10882417 (3) Congestive heart failure Current Visit: Yes Status: Acute TTE shows EF 65%. Further workup and management per the primary team. Qualifiers: Heart failure type: unspecified Heart failure chronicity: chronic Qualified Code(s): I50.9 - Heart failure, unspecified SNOMED Code(s): 57158201 (4) Nocardial pneumonia Current Visit: Yes Status: Acute Diagnosed in December 2017 with repeat bronch January 2018 also positive. Started treatment in April 12 with Bactrim Q8H with plans to treat through 10/04/18. CT chest unchanged from previous imaging. Recommend pulmonology to evaluate. The patient may need repeat bronch. Currently on PO Bactrim. SNOMED Code(s): 714212428 (5) Lichen planus Current Visit: Yes Status: Acute Follows with [facility]. Currently on plaquenil. SNOMED Code(s): 1537404 (6) HLD (hyperlipidemia) Current Visit: No Status: Chronic Qualifiers: Hyperlipidemia type: unspecified Qualified Code(s): E78.5 - Hyperlipidemia, unspecified SNOMED Code(s): 77200725 (7) HTN (hypertension) Current Visit: No Status: Chronic Qualifiers: Hypertension type: essential hypertension Qualified Code(s): I10 - Essential (primary) hypertension SNOMED Code(s): 45078977 (8) COPD (chronic obstructive pulmonary disease) Current Visit: No Status: Chronic Qualifiers: COPD type: unspecified COPD Qualified Code(s): J44.9 - Chronic obstructive pulmonary disease, unspecified SNOMED Code(s): 83346520 (9) History of lung cancer Current Visit: Yes Status: Acute Stage IIIB adenocarcinoma right lung status post chemoradiation with cisplatin and etoposide in 2010 followed by adjuvant treatment in 2014. Currently in remission. SNOMED Code(s): 445648438, 614419775 (10) Abdominal pain Current Visit: Yes Status: Acute Qualifiers: Abdominal location: epigastric Qualified Code(s): R10.13 - Epigastric pain SNOMED Code(s): 51799121 - Recommendations Recommendations: Check procalcitonin. Check amylase and lipase. Check aspergillus galactomannan. Await blood cultures to finalize. Recommend pulmonology to evaluate. Continue Bactrim DS 1 tab PO Q8H for now. May consider stopping if we are unable to identify other causes of the patient's nausea and abdominal pain. Duration of treatment depends on the clinical picture. Monitor renal function and dose-adjust antibiotics. Past Med Surg Social Fam HX - Past Medical History Attestation: Yes The following information was validated with the patient. Source: patient, old records reviewed, nursing notes reviewed Medical history: arthritis, cancer, COPD, hyperlipidemia, hypertension Additional medical history: Lung cancer in remission, Macular degeneration. kidney stone. Hearing loss. Neuropathy. Lichen planus Psychiatric history: no psych history - Past Surgical History Surgical History: breast surgery Additional surgical history: breast surgery, and 2 D&C's - Social History Smoking Status: Never smoker Smokeless Tobacco Status: No Alcohol use: none Drug use: none - Family History Mother Living Status: Hx Family Cardiac Disorders: Yes (cardiac arrest, htn) Hx Family Cancer: Yes (kidney) Father Living Status: Hx Family Endocrine Disorder: Yes (DM) Consult Discharge Plan - Plan Referrals: Jorge Moya MD [Primary Care Provider] - 09/20/18 2:00 pm () - Attending Attestation I have personally performed a face to face evaluation on this patient. I have reviewed and agree with the care plan. History and Exam by me shows: Assessment and plan: Nocardiosis Lichen planus Nausea Palliative to thrive Pleural effusion History of lung cancer REcommendations: Not sure was causing the patient's symptoms. Concern for possible Bactrim adverse reaction versus Plaquenil versus other things. will rule out infectious etiology check lipase amylase consult pulmonary stop bactrim (he due stop date is early September anyways)
--- NOTE | 2018-09-14 14:50 | IR Procedure Note ---
Date of procedure: 09/14/18 Consent Obtained: Written consent Timeout: Correct patient and procedure verified, Correct site verified, Time out performed, Skin prep completed Local anesthetic: Lidocaine 1% Indications: Right pleural effusion Procedure Performed: Thoracentesis Was there an office support assistant present: Yes Director Of Market Intelligence: David Sarabia Site/Technique: Dr. Sarabia attempted initially, though unable to obtain. Results/Findings: Brought to [facility]. I did at bedside in holding with u/s. Estimated blood loss (cc): 1 Complications: None; Tolerated procedure well Post Procedure Treatment Plan: Monitoring in pts room Specimen: to lab
[2018-09-14 15:51] LABS: RBC,Pleural Fluid < 0.002 M/mcL
[2018-09-14 16:01] LABS: Total Protein,Pleural Fluid 3.8 g/dL
[2018-09-14 16:14] LABS: Appearance of Pleural Fl Clear (Clear)
[2018-09-14 17:25] LABS: Amylase 33 Units/L (29-103); Lipase 35 Units/L (11-82)
[2018-09-15] MEDS: Acetaminophen 325 MG TABLET PO PRN (00:24)
[2018-09-15] MEDS: *HR* Heparin 5,000 UNIT/ML VIAL SQ SCH ×3 (05:25→21:22)
[2018-09-15] MEDS: Lactobacillus 1 EACH CAP.SPRINK PO SCH (07:38)
[2018-09-15] MEDS: Metoprolol XL (24 HR) Succ 25 MG TAB.ER.24H PO SCH (07:39)
[2018-09-15] MEDS: Diltiazem CD (24hr) 240 MG CAPSULE PO SCH (07:39)
[2018-09-15] MEDS: Sulfamethoxazole/Trimeth DS 1 EACH TABLET PO SCH (07:41)
[2018-09-15] MEDS: Budesonide/Formoterol 160/4.5 1 PUFF INH IH SCH ×2 (07:59→19:50)
--- NOTE | 2018-09-15 12:02 | Internal Med Progress Note ---
Hospitalist Progress Note - Encounter Date of Encounter: 09/15/18 Time of Encounter: 12:02 - Subjective Interval History: Patient was examined and seen. Feeling better and shortness of breath and cough No acute event overnight. Reviewed lab and vitals I Denies fever chills nausea vomiting headache dizziness chest pain abdominal pain diarrhea. - Exam Vitals: Temp Pulse Resp BP Pulse Ox 97.9 F 80 18 133/68 95 09/15/18 11:49 09/15/18 11:49 09/15/18 11:49 09/15/18 11:49 09/15/18 11:49 Exam: Constitutional: In no distress ENT : decreased hearing. Moist mucus membranes. Oral lesion secondary to lichen planus to the right ovary mucosa. Respiratory : Decreased breath sound right base. No wheezing rhonchi crackles Cardiovascular : RRR, +S1, +S2. no murmur GI/Abdominal : Soft, Non-tender, Non-distended, no peritoneal signs. Musculoskeletal: no deformity noted. 1+ pedal edema, no calf tenderness. Neurological: AO X3, CN II-XII grossly intact, grossly normal motor and sensory exam. - Assessment and Plan (1) Fever Current Visit: Yes Status: Acute Assessment and Plan: Patient with fever with unclear source. Possibility pulmonary source. Patient is immunosuppressed with prednisone and plaquanil CBC BMP unremarkable. Does have small to moderate pleural effusion with some Rt sided pain. Patient did have elevated ESR and CRP. History of nocardia pneumonia and lichen planus-on Bactrim. ID advised to consult pulmonary for further evaluation therefore consulted whether patient needs further bronchoscopy. In ER patient had vancomycin and Zosyn but is stopped eventually. Continue Bactrim for now and further recommendation as per ID. Blood culture with no growth yet Plan to discharge once cleared from ID and pulmonary (2) Pleural effusion Current Visit: Yes Status: Acute Assessment and Plan: Does not appear to be septic as of now Status post thoracentesis on 09/14/2018-960 mL fluid drained cytology pending Impressions: LVEF 65%. Mild left ventricular diastolic dysfunction. Normal right ventricular structure and function. Mild mitral regurgitation. Mild pulmonary hypertension.Estimated RVSP is 42 mmHg. Mild-moderate tricuspid regurgitation. Left Ventricular Wall Motion: Rest Echo Findings All wall segments showed normal motion. (3) History of lung cancer Current Visit: Yes Status: Acute Assessment and Plan: History of adenocarcinoma of right lung Has been in remission. Last seen by oncology early this year without any changes CT chest - reviewed Obtain calcium and PTH - normal Patient had right pleural effusion is status post thoracentesis approximately 960 ml fluid drained on 09/14/2089 Cytology-report is pending IMPRESSION: Small to moderate right pleural effusion, new. No significant change otherwise in appearance of the lungs. (4) Chronic steroid use Current Visit: No Status: Acute Assessment and Plan: Continue (5) HLD (hyperlipidemia) Current Visit: No Status: Chronic Assessment and Plan: continue home medications (6) HTN (hypertension) Current Visit: No Status: Chronic Assessment and Plan: continue home medications (7) COPD (chronic obstructive pulmonary disease) Current Visit: No Status: Chronic Assessment and Plan: COntinue home medication (8) Generalized weakness Current Visit: Yes Status: Acute Assessment and Plan: workup as above. 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 Had high fevers at home. None documented here. Procal negative. Does have elevated ESR/CRP. Has h/o Nocardia PNA and lichen planus. On Bactrim which is continued. Hold abx for now. - Plan for thorocentesis IR guided. Blood culture NGTD, Urine ag, RIP and MRSA negative. ID consulted - CT with effusion and some consolidation, bronchiectasis seen previously as well. - f/u ECHO. Previously with EF 65, mild LV DD, mild Pul HTN. - TSH, Calcium and PTH normal - Time Spent with Patient Total time spent is greater than 50% in coordination of care (as documented) at patient's floor/unit and/or counseling patient: Internal Medicine: Result - Labs CBC & Chem 7: 09/14/18 06:13 09/14/18 06:13 - ABG Interpretation ABG results: PT/INR, D-dimer PT 11.1 Seconds (9.4-12.1) 09/14/18 06:13 - Impressions Impressions Thoracentesis 09/14/18 06:52 IMPRESSION: Successful ultrasound guided thoracentesis. D/ / Samuel Cano MD / Samuel Cano MD Interpreting Provider: Samuel Cano MD Chest X-Ray 09/14/18 14:17 IMPRESSION: Decreasing right effusion following thoracentesis. No pneumothorax. D/ / 09/14/2018 14:46:40 Layo Al MD / sherine Interpreting Provider: Layo Al MD Consult Discharge Plan - Plan Referrals: Jorge Moya MD [Primary Care Provider] - 09/20/18 2:00 pm () (1) Fever Qualifiers: Fever type: unspecified Qualified Code(s): R50.9 - Fever, unspecified (5) HLD (hyperlipidemia) Qualifiers: Hyperlipidemia type: unspecified Qualified Code(s): E78.5 - Hyperlipidemia, unspecified (6) HTN (hypertension) Qualifiers: Hypertension type: essential hypertension Qualified Code(s): I10 - Essential (primary) hypertension (7) COPD (chronic obstructive pulmonary disease) Qualifiers: COPD type: unspecified COPD Qualified Code(s): J44.9 - Chronic obstructive pulmonary disease, unspecified (9) Hypothyroidism Qualifiers: Hypothyroidism type: unspecified Qualified Code(s): E03.9 - Hypothyroidism, unspecified
--- NOTE | 2018-09-15 12:52 | Infectious Disease Progress No ---
ID Progress Note Date of Encounter: 09/15/18 Time of Encounter: 11:00 - Subjective Subjective: Patient seen and examined. No acute events noted overnight. Patient states overall she feels better today. Denies fevers, chills, or rigors. Denies chest pain and states her breathing and cough are back to baseline. Denies nausea, vomiting, diarrhea. Reports last BM on the day of admission. Denies abdominal pain or urinary complaints. States appetite is better. Denies oral thrush or skin lesions. Reports one lichen planus ulcer to the right side of her gums. - Objective CBC & Chem 7: 09/14/18 06:13 09/14/18 06:13 - Exam Vitals: Temp Pulse Resp BP Pulse Ox 97.9 F 80 18 133/68 95 09/15/18 11:49 09/15/18 11:49 09/15/18 11:49 09/15/18 11:49 09/15/18 11:49 Exam: Head: Atraumatic, normal inspection, normocephalic. Eye: EOMI, PERRLA, no scleral icterus noted. ENT: Mucous membranes moist. No odontogenic infection noted. Oral lesionsnoted secondary to lichen planus to the right oral mucosa. Neck: Normal inspection, no meningismus. Respiratory: Clear to auscultation. No rales, respiratory distress, rhonchi, or wheezes noted. Cardiovascular: Regular rate and rhythm, S1 and S2 audible. No murmurs, rubs, or gallops. GI: Soft, nondistended, normal bowel sounds. Extremities:No joint swelling, pedal edema, or tenderness noted. Back: Normal inspection. No vertebral tenderness noted. Neurological: Alert, oriented 3, no focal deficits. Psychiatric: normal affect, normal mood. Skin: Dry, intact, warm. Normal color. No rashes. - Assessment and Plan (1) Nausea Current Visit: Yes Status: Acute Etiology: Unclear -- medication vs. other. LFTs normal. Amylase and lipase normal. Improved. Symptomatic management per the primary team. SNOMED Code(s): 426927972 (2) Pleural effusion Current Visit: Yes Status: Acute Likely secondary to CHF exacerbation. CT chest showed a right small-moderate pleural effusion, but no PNA. IR consulted. Status post CT-guided thora that yielded 970ml pleural fluid. Exudative per Light's criteria. Culture pending. Cytology pending. SNOMED Code(s): 51479266 (3) Congestive heart failure Current Visit: Yes Status: Acute TTE shows EF 65%. Further workup and management per the primary team. Qualifiers: Heart failure type: unspecified Heart failure chronicity: chronic Qualified Code(s): I50.9 - Heart failure, unspecified SNOMED Code(s): 37603219 (4) Nocardial pneumonia Current Visit: Yes Status: Acute Diagnosed in December 2017 with repeat bronch January 2018 also positive. Started treatment in April 12 with Bactrim Q8H with plans to treat through 10/04/18. CT chest unchanged from previous imaging. Recommend pulmonology to evaluate. The patient may need repeat bronch. Currently on PO Bactrim. SNOMED Code(s): 167092892 (5) Lichen planus Current Visit: Yes Status: Acute Follows with [facility]. Currently on plaquenil. SNOMED Code(s): 0197259 (6) HLD (hyperlipidemia) Current Visit: No Status: Chronic Qualifiers: Hyperlipidemia type: unspecified Qualified Code(s): E78.5 - Hyperlipidemia, unspecified SNOMED Code(s): 10642462 (7) HTN (hypertension) Current Visit: No Status: Chronic Qualifiers: Hypertension type: essential hypertension Qualified Code(s): I10 - Essential (primary) hypertension SNOMED Code(s): 37430570 (8) COPD (chronic obstructive pulmonary disease) Current Visit: No Status: Chronic Qualifiers: COPD type: unspecified COPD Qualified Code(s): J44.9 - Chronic obstructive pulmonary disease, unspecified SNOMED Code(s): 78437650 (9) History of lung cancer Current Visit: Yes Status: Acute Stage IIIB adenocarcinoma right lung status post chemoradiation with cisplatin and etoposide in 2010 followed by adjuvant treatment in 2014. Currently in remission. SNOMED Code(s): 550425420, 114646742 (10) Abdominal pain Current Visit: Yes Status: Acute Improved. Qualifiers: Abdominal location: epigastric Qualified Code(s): R10.13 - Epigastric pain SNOMED Code(s): 98105102 - Recommendations Recommendations: Check aspergillus galactomannan. --> pending. Await blood cultures to finalize. Recommend pulmonology to evaluate. Discontinue Bactrim and observe. Follow up with Dr. Warren in the outpatient ID clinic as scheduled. Consult Discharge Plan - Plan Referrals: Jorge Moya MD [Primary Care Provider] - 09/20/18 2:00 pm () - Attending Attestation I have personally performed a face to face evaluation on this patient. I have reviewed and agree with the care plan. History and Exam by me shows: Assessment and plan: Nocardiosis Lichen planus Nausea Palliative to thrive Pleural effusion History of lung cancer Recommendations get CT abdomen to rule out mets to the abdomen d/w pulmonary
--- NOTE | 2018-09-15 15:00 | Pulmonology Consult Note ---
Date of Encounter: 09/15/18 Time of Encounter: 14:59 Assessment and Plan (1) Nocardial pneumonia Current Visit: Yes Status: Acute Cultures as far are negative for an acute process procalcitonin is within normal limits and she does not have a leukocytosis. It is unclear to me if she has an active infection or not. It appears that she is not tolerating the Bactrim very well and that may actually be the etiology of most of her symptomatology. I had a long discussion with her primary infectious disease doctor (Dr Warren) today and we are in agreement at this point can likely treat conservatively and follow up in the outpatient pulmonary office for she has an appointment with Dr Hilton in approximately 3 weeks. If concern exists for incompletely treated no cardia at that time she can undergo repeat bronchoscopy (2) Pleural effusion Current Visit: Yes Status: Acute Technically by light's criteria this is a exudative pleural effusion which is lymphocytic predominant which is generally not the case for her parapneumonic process. Unfortunately malignancy remains in the differential and will need to follow up on cytology to see about this. This may also be related to heart failure and misclassified occasionally this is the case in these instances sending the pleural fluid for cholesterol can be helpful. Again this can be followed up on in the outpatient setting Thank you so much for this consultation Do not hesitate to call me with any questions or concerns Benny Siva [phone] History of Present Illness Consult date: 09/15/18 Requesting physician: Jaymie Foster Reason for consult: pneumonia Chief complaint: Feeling Poorly History of present illness: 88-year-old woman former smoker and history of non-small cell lung cancer presented to the hospital for generally feeling unwell including having weight loss poor appetite feeling nauseous. 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 Before admission she did report some subjective fevers and chills. She denies any hemoptysis. She has been losing weight over the last few months as well. She was also complaining of some right rib pain. Denies any diarrhea. On admission was noted to have a pleural effusion and underwent diagnostic/therapeutic thoracentesis yesterday. She is a little bit sore in her shoulder on the right after this procedure. In general after getting fluids since she has been in the hospital here she is feeling better Past Med Surg Social Fam HX - Past Medical History Medical history: arthritis, cancer, COPD, hyperlipidemia, hypertension Additional medical history: Lung cancer in remission, Macular degeneration. kidney stone. Hearing loss. Neuropathy. Lichen planus Psychiatric history: no psych history - Past Surgical History Surgical History: breast surgery Additional surgical history: breast surgery, and 2 D&C's - Social History Smoking Status: Never smoker Smokeless Tobacco Status: No Alcohol use: none Drug use: none - Family History Mother Living Status: Hx Family Cardiac Disorders: Yes (cardiac arrest, htn) Hx Family Cancer: Yes (kidney) Father Living Status: Hx Family Endocrine Disorder: Yes (DM) Medications and Allergies Omeprazole [PriLOSEC] 20 mg PO DAILY #30 cap 07/01/16 [Rx] Cholecalciferol (D-3) [Vitamin D] 5,000 unit PO Q48H 06/22/17 [History] Mv-Mn/FA/Vit K/Lycop/Lut/Coq10 [Daily Multivitamin Capsule] 2 tab PO DAILY 07/20/17 [History] Lactobacillus Combination No.8 [Adult Probiotic] 1 cap PO DAILY 12/05/17 [History] Albuterol Sulfate [Ventolin Hfa] 2 puff IH Q4H PRN 09/13/18 [History] Atorvastatin Calcium [Lipitor] 20 mg PO DAILY 09/13/18 [History] Budesonide/Formoterol 160/4.5 [Symbicort 160/4.5] 2 puff IH BID 09/13/18 [History] Diltiazem CD (24hr) [Cardizem CD] 240 mg PO DAILY 09/13/18 [History] Hydroxychloroquine [Plaquenuil] 200 mg PO DAILY 09/13/18 [History] Levothyroxine Sodium [Levo-T] 50 mcg PO QAM 09/13/18 [History] Metformin HCl [Glumetza] 500 mg PO QPM 09/13/18 [History] Metoprolol Succinate [Toprol Xl] 25 mg PO DAILY 09/13/18 [History] Sulfamethoxazole/Trimeth DS [Bactrim DS] 1 tab PO Q8H 09/13/18 [History] Triamcinolone Acetonide 1 appl TP QID PRN 09/13/18 [History] Allergy/AdvReac Type Severity Reaction Status Date / Time chlorthalidone Allergy See Verified 09/13/18 13:09 Comments codeine Allergy Hives Verified 09/13/18 13:09 metoprolol Allergy See Verified 09/13/18 13:09 Comments Iodinated Contrast- Oral and AdvReac Nausea Verified 09/15/18 15:26 IV Dye All Systems: The remainder of the systems were reviewed and are negative Physical Examination Vital Signs: Vital Signs, Last 4 Hours Temp Pulse Resp BP Pulse Ox 09/15/18 11:49 97.9 F 80 18 133/68 95 General appearance: no acute distress Eyes: nonicteric ENT: oropharynx moist Neck: supple Auscultation: right: diminished breath sounds, rales Cardiovascular: regular rate and rhythm Gastrointestinal: normoactive bowel sounds, soft, non-tender Integumentary: normal Extremities: no cyanosis, no edema, no clubbing Musculoskeletal: no deformities normal mental status, non-focal exam Results - Laboratory Findings CBC and BMP: 09/14/18 06:13 09/14/18 06:13 PT/INR, D-dimer PT 11.1 Seconds (9.4-12.1) 09/14/18 06:13 Abnormal lab findings: Abnormal lab results ESR 37 mm/hr (0-15) H 09/14/18 06:13 Est GFR ( Amer) 54 (> 60) L 09/13/18 14:20 Est GFR (Non-Af Amer) 50 (> 60) L 09/14/18 06:13 POC Glucose 152 mg/dL (70-99) H 09/14/18 20:35 123 Units/L (140-271) L 09/14/18 06:13 11 mg/L (Less than 10) H 09/13/18 14:20 B-Natriuretic Peptide 191 pg/mL (Less than 100) H 09/14/18 06:13 6.0 g/dL (6.4-8.9) L 09/14/18 06:13 - Microbiology Findings Microbiology Findings: Microbiology, Last 48 Hours 09/14/18 14:13 Body Fluid Culture - Preliminary Pleural Fluid 09/14/18 14:13 Fungal Culture - Preliminary Pleural Fluid Culture is incubating. 09/13/18 20:48 Sputum Culture - Final Sputum 09/13/18 18:09 Legionella Antigen - Final Urine,Clean Catch Streptococcus pneumoniae Antigen (M - Final 09/13/18 14:46 Blood Culture - Preliminary Peripheral Venipuncture Culture is incubating and being continuously monitored for growth. Final report to follow. 09/13/18 14:20 Blood Culture - Preliminary Peripheral Venipuncture Culture is incubating and being continuously monitored for growth. Final report to follow. - Diagnostic Findings Chest x-ray: report reviewed, image reviewed CT scan - chest: report reviewed, image reviewed - Clinical Findings Intake & Output: Intake & Output 09/14/18 09/15/18 09/15/18 23:59 07:59 15:59 Intake Total 320 / 560 240 / 240 Balance 320 / 560 240 / 240 Weight 55.2 kg Consult Discharge Plan - Plan Referrals: Jorge Moya MD [Primary Care Provider] - 09/20/18 2:00 pm ()
[2018-09-15] MEDS ORDERED: Ondansetron 4 MG/2 ML VIAL IVP ONE (15:17)
[2018-09-16] MEDS: Acetaminophen 325 MG TABLET PO PRN (00:07)
[2018-09-16] MEDS: *HR* Heparin 5,000 UNIT/ML VIAL SQ SCH (05:20)
[2018-09-16 07:47] VITALS: BP 151/82
[2018-09-16] MEDS: Budesonide/Formoterol 160/4.5 1 PUFF INH IH SCH (08:00)
[2018-09-16] MEDS: Lactobacillus 1 EACH CAP.SPRINK PO SCH (08:52)
[2018-09-16] MEDS: Diltiazem CD (24hr) 240 MG CAPSULE PO SCH (08:53)
[2018-09-16] MEDS: Metoprolol XL (24 HR) Succ 25 MG TAB.ER.24H PO SCH (08:53)
[2018-09-16 09:05] LABS: Calcium 9.5 mg/dL (8.6-10.3); Potassium 4.2 mEq/L (3.5-5.1)
[2018-09-16 09:06] LABS: Basophils # 0.1 K/mcL (0.0-0.2); Eosinophils # 0.2 K/mcL (0.0-0.6); Eosinophils % 3.5 %; Hematocrit 38.9 % (35.3-44.9); Hemoglobin 12.8 g/dL (11.5-15.4); Immature Granulocytes % 0.6 % (0-4); Mean Corpuscular HGB Conc 32.9 g/dL (31.6-35.5); Mean Corpuscular Hemoglobin 32.2 pg (28.0-33.3); Mean Corpuscular Volume 97.7 fL (83.0-100.0); Mean Platelet Volume 9.8 fL (9.4-12.4); Monocytes # 0.8 K/mcL (0.0-1.3); Monocytes % 15.9 %; Neutrophils # 3.1 K/mcL (1.6-8.9); Platelet Count 345 K/mcL (140-400); Red Blood Count 3.98 M/mcL (3.82-4.97); White Blood Count 5.2 K/mcL (4.3-11.1)
--- NOTE | 2018-09-16 10:56 | Discharge Summary ---
- NOTES TO OUTPATIENT PROVIDER Notes to Outpatient Provider: Follow-up with PCP in 3-5 [id number] cytology report, final blood and fungal culture report. Monitor pleural effusion with interval chest x-ray or as per clinical symptoms. A small dose of Lasix started in needs further monitoring by PCP. Keep appointment with her manager combination Dr. Sheets-2 weeks. Keep appointment with ID specialist as a scheduled Orders not resulted at time of discharge: Pending orders 09/13/18 14:46 Culture,Blood [BC] Stat 09/13/18 17:43 Culture,Body Fluid [RM] Routine Fungal Culture [MYC] Routine 09/14/18 14:54 Erythrocyte Sedimentation Rate [HEME] Routine Cytology [PTH] Routine 09/14/18 16:57 Aspergillus galactomannan Ag Routine Date of Encounter: 09/16/18 Time of Encounter: 10:53 - Discharge Diagnosis (1) Fever Priority: Primary Status: Acute Assessment and Plan: No fever since admission. CBC normal. ID on board. Final fungal and blurred culture report to be followed by PCP-no growth yet Patient did have elevated ESR and CRP. 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 ID and pulmonary was consulted and after long discussion it was decided to stop Bactrim and have her follow outpatient with ID and her manager combination and consider bronchoscope feeling if needed. No inpatient bronchoscopy recommended by manager combination during this admission. As there is no obvious source of infection at this time and patient does not have any fever with normal white count even after stopping Bactrim therefore decided to discharge patient without antibiotic at this time with close monitoring outpatient. (2) Pleural effusion Priority: Primary Status: Acute Assessment and Plan: Does not appear to be septic as of now Status post thoracentesis on 09/14/2018-960 mL fluid drained. Exaggerative pyelitis criteria Likely secondary to CHF exacerbation but culture and cytology is still pending. Low-dose Lasix 20 mg by mouth daily started on discharge cytology pending Impressions: LVEF 65%. Mild left ventricular diastolic dysfunction. Normal right ventricular structure and function. Mild mitral regurgitation. Mild pulmonary hypertension.Estimated RVSP is 42 mmHg. Mild-moderate tricuspid regurgitation. Left Ventricular Wall Motion: Rest Echo Findings All wall segments showed normal motion. 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 Last seen by oncology early this year without any changes CT chest - reviewed Obtain calcium and PTH - normal Patient had right pleural effusion is status post thoracentesis approximately 960 ml fluid drained on 09/14/2089 Cytology-report is pending IMPRESSION: Small to moderate right pleural effusion, new. No significant change otherwise in appearance of the lungs. (4) Chronic steroid use Priority: Secondary Status: Acute Assessment and Plan: Due to lichen planus. Continue (5) HLD (hyperlipidemia) Priority: Secondary Status: Chronic Assessment and Plan: continue home medications Qualifiers: Hyperlipidemia type: unspecified Qualified Code(s): E78.5 - Hyperlipidemia, unspecified (6) HTN (hypertension) Priority: Secondary Status: Chronic Assessment and Plan: continue home medications Qualifiers: Hypertension type: essential hypertension Qualified Code(s): I10 - Essential (primary) hypertension (7) COPD (chronic obstructive pulmonary disease) Priority: Secondary Status: Chronic Assessment and Plan: COntinue home medication Qualifiers: COPD type: unspecified COPD Qualified Code(s): J44.9 - Chronic obstructive pulmonary disease, unspecified (8) Generalized weakness Priority: Primary Status: Acute Assessment and Plan: Improving. (9) Hypothyroidism Priority: Secondary Status: Acute Assessment and Plan: Obtain TSH - normal Qualifiers: Hypothyroidism type: unspecified Qualified Code(s): E03.9 - Hypothyroidism, unspecified (10) Congestive heart failure Priority: Primary Status: Acute Assessment and Plan: Possibly CHF exacerbation. Echocardiogram done with pressure EF but diastolic dysfunction. Low-dose Lasix is started. Qualifiers: Heart failure type: diastolic Heart failure chronicity: chronic Qualified Code(s): I50.32 - Chronic diastolic (congestive) heart failure Hospital course: Ms. Mcgraw is a 88 year old female patient got admitted for fever cough shortness of breath chest pain. She had been afebrile with normal white count during this stay. Right pleural effusion is status post thoracentesis-after this procedure patient back to baseline with no chest pain and significant improvement in shortness of breath. ID specialist and pulmonologists consulted- okay to discharge patient with follow-up instruction. Please see detail in diagnosis section of discharge summary. CT abdomen and pelvis with no acute fin ding or abscess-discussed discharge planning with ID specialist on phone. At the time of discharge patient is clinically and hemodynamically stable, ambulating, tolerating diet. Patient is being discharged home under stable condition Discharge discussed with: patient, [facility] consultant - Time Spent with Patient Total time spent providing and/or coordinating discharge services: Time spent: Less than 30 minutes - Discharge Medications Prescriptions: New Furosemide [Lasix] 20 mg PO DAILY PRN #30 tablet PRN Reason: Edema Continued Omeprazole [PriLOSEC] 20 mg PO DAILY #30 cap Cholecalciferol (D-3) [Vitamin D] 5,000 unit PO Q48H Mv-Mn/FA/Vit K/Lycop/Lut/Coq10 [Daily Multivitamin Capsule] 2 tab PO DAILY Lactobacillus Combination No.8 [Adult Probiotic] 1 cap PO DAILY Albuterol Sulfate [Ventolin Hfa] 2 puff IH Q4H PRN PRN Reason: Shortness Of Breath Atorvastatin Calcium [Lipitor] 20 mg PO DAILY Budesonide/Formoterol 160/4.5 [Symbicort 160/4.5] 2 puff IH BID Diltiazem CD (24hr) [Cardizem CD] 240 mg PO DAILY Hydroxychloroquine [Plaquenuil] 200 mg PO DAILY Levothyroxine Sodium [Levo-T] 50 mcg PO QAM Metoprolol Succinate [Toprol Xl] 25 mg PO DAILY Triamcinolone Acetonide 1 appl TP QID PRN PRN Reason: MOUTH SORES Metformin HCl [Glumetza] 500 mg PO QPM Discontinued Sulfamethoxazole/Trimeth DS [Bactrim DS] 1 tab PO Q8H Home Medications: Omeprazole [PriLOSEC] 20 mg PO DAILY #30 cap 07/01/16 [Rx] Cholecalciferol (D-3) [Vitamin D] 5,000 unit PO Q48H 06/22/17 [History] Mv-Mn/FA/Vit K/Lycop/Lut/Coq10 [Daily Multivitamin Capsule] 2 tab PO DAILY 07/20/17 [History] Lactobacillus Combination No.8 [Adult Probiotic] 1 cap PO DAILY 12/05/17 [History] Albuterol Sulfate [Ventolin Hfa] 2 puff IH Q4H PRN 09/13/18 [History] Atorvastatin Calcium [Lipitor] 20 mg PO DAILY 09/13/18 [History] Budesonide/Formoterol 160/4.5 [Symbicort 160/4.5] 2 puff IH BID 09/13/18 [History] Diltiazem CD (24hr) [Cardizem CD] 240 mg PO DAILY 09/13/18 [History] Hydroxychloroquine [Plaquenuil] 200 mg PO DAILY 09/13/18 [History] Levothyroxine Sodium [Levo-T] 50 mcg PO QAM 09/13/18 [History] Metformin HCl [Glumetza] 500 mg PO QPM 09/13/18 [History] Metoprolol Succinate [Toprol Xl] 25 mg PO DAILY 09/13/18 [History] Triamcinolone Acetonide 1 appl TP QID PRN 09/13/18 [History] Furosemide [Lasix] 20 mg PO DAILY PRN #30 tablet 09/16/18 [Rx] Allergies/Adverse Reactions: Allergy/AdvReac Type Severity Reaction Status Date / Time chlorthalidone Allergy See Verified 09/13/18 13:09 Comments codeine Allergy Hives Verified 09/13/18 13:09 metoprolol Allergy See Verified 09/13/18 13:09 Comments Iodinated Contrast- Oral and AdvReac Nausea Verified 09/15/18 15:26 IV Dye Date of admission: 09/13/18 16:11 Primary care physician: Jorge Moya MD Consults: 09/13/18 17:05 Consult to Infectious Diseases [CONS] Routine Consulting Provider: Infectious Disease [place] Reason for Consult: fever, pleural effusion, Nocardia pneumonia Call Completed: No 09/15/18 07:49 Consult to Nurse Navigator [CONS] Routine Comment: CHF 09/15/18 12:03 Consult to Pulmonology [CONS] Routine Consulting Provider: [facility] Reason for Consult: nocardia pneumonia Call Completed: Yes 09/15/18 14:07 Consult to Occupational Therapy [CONS] Routine Comment: Evaluate, develop and implement POC Reason for Consult: Generalized weakness Does patient have active BEDREST order?: No Is patient medically & hemodynamically stable?: Yes Patient assessed for mobility or mobilized this visit?: No Consult to Physical Therapy [CONS] Routine Comment: Evaluate, develop and implement POC Reason for Consult: Generalized weakness Does patient have active BEDREST order?: No Is patient medically & hemodynamically stable?: Yes Patient assessed for mobility or mobilized this visit?: No - Constitutional Vitals: Temp Pulse Resp BP Pulse Ox 97.7 F 107 12 151/82 97 09/16/18 07:44 09/16/18 07:44 09/16/18 08:03 09/16/18 07:44 09/16/18 08:03 Exam: Constitutional: In no distress ENT : decreased hearing. Moist mucus membranes. Oral lesion secondary to lichen planus to the right ovary mucosa. Respiratory : Decreased breath sound right base with minimum crackles. Cardiovascular : RRR, +S1, +S2. no murmur GI/Abdominal : Soft, Non-tender, Non-distended, no peritoneal signs. Musculoskeletal: no deformity noted. Trace pedal edema, no calf tenderness. Neurological: AO X3, CN II-XII grossly intact, grossly normal motor and sensory exam. - Patient Status Disposition: Home, Self-Care Condition: Fair Overall status at discharge: patient is progressing back to baseline - Discharge Instructions Follow Up With: Jorge Moya MD [Primary Care Provider] - 09/20/18 2:00 pm () - Diet and Activity Diet: advance to your usual diet, diabetic diet, low fat, low cholesterol, low salt diet
[2018-09-16] MEDS ORDERED: Furosemide 20 MG TABLET PO PRN (11:19)
[2018-09-18 01:09] LABS: A.galactomannan Ag Index 0.03
== END 2018-09-16 12:23 | disposition home or self-care (01) ==
LOC: EMEROOARM 13:00 → 3BNU 13:00 → SUATTDRO 16:11 → 3BNU 17:15
PROVIDERS: ADMIT Internal Medicine Nephrology; ATTEND Internal Medicine